=== PATIENT | female | born 1945 | race Caucasian/White ===

== ENCOUNTER 2021-03-25 12:57 | Inpatient (IN) | payer MEDICARE ==
[2021-03-25] MEDS ORDERED: Ipratropium Bromide 0.06% Nasal Inhaler 15ml EA NARE PRN (18:15)
[2021-03-25 20:10] LABS: Vancomycin, Trough 13.6 ug/mL
[2021-03-25] MEDS ORDERED: MELATONIN PO SCH (21:00)
[2021-03-25] MEDS ORDERED: PYRIDOXINE PO SCH (21:00)
[2021-03-25] MEDS ORDERED: Melatonin 3 MG TAB PO SCH (21:00)
[2021-03-25] MEDS ORDERED: Sodium Chloride 0.9% 20 ML ONE (21:16)
[2021-03-25] MEDS: Vancomycin HCl 1 GM in Sodium Chloride 0.9% 250 ML 250 ML IVPB SCH (21:34)
[2021-03-25] MEDS: Apixaban 5 MG TAB PO SCH (21:45)
[2021-03-25] MEDS: Escitalopram Oxalate 10 mg Tablet PO SCH (21:45)
[2021-03-25] MEDS: Magnesium Oxide 400 MG TAB PO SCH (21:51)
[2021-03-25] MEDS: AZELASTINE 0.1% FS SCH (21:53)
[2021-03-25] MEDS: Rifampin 300 MG CAP PO SCH (22:49)
[2021-03-26] MEDS: Levothyroxine Sodium 88 MCG TAB PO SCH (05:40)
[2021-03-26 06:27] LABS: #Basophils 0.1 thou/uL (0.0-0.2); #Eosinphils 0.1 thou/uL (0.0-0.7); #Lymphocytes 1.1 thou/uL (1.20-3.40); #Monocytes 0.7 thou/uL (0.11-0.59); #Neutrophils 3.4 thou/uL (1.40-6.50); %Basophils 1.3 % (0.0-1.0); %Eosinophils 2.5 % (0.0-10.0); %Lymphocytes 20.9 % (21.0-51.0); %Monocytes 12.3 % (0.0-10.0); Hemoglobin 9.6 g/dL (12.0-16.0); Mean Corpuscular HGB CONC 31.5 g/dL (32.0-36.0); Mean Corpuscular Hemoglobin 29.5 pg (27.0-31.0); Mean Corpuscular Volume 93.7 fL (78.0-98.0); Mean Platelet Volume 6.6 fL (7.4-10.4); Platelet Count 270 thou/uL (130-400); RBC Distribution Width 11.8 % (11.5-14.5); Red Blood Cell (RBC) Count 3.26 mill/uL (4.20-5.40); White Blood Cell (WBC) Count 5.4 thou/uL (4.8-10.8)
[2021-03-26 06:40] LABS: ALT (SGPT) 16 U/L (8-55); AST (SGOT) 19 U/L (5-34); Albumin 3.1 g/dL (3.4-4.8); Alkaline Phosphatase 74 U/L (40-110); Anion Gap 12 mmol/L (10-20); BUN (Urea Nitrogen) 36 mg/dL (9.8-20.1); Bilirubin, Total 0.8 mg/dL (0.2-1.2); Calc. Creatinine Clearance 43 mL/min (70-130); Calcium 9.6 mg/dL (7.8-10.44); Carbon Dioxide 27 mmol/L (23-31); Chloride 101 mmol/L (98-107); Globulin 2.9 g/dL (2.4-3.5); Glucose 97 mg/dL (83-110); Potassium 3.3 mmol/L (3.5-5.1); Sodium 137 mmol/L (136-145)
[2021-03-26] MEDS: Liothyronine Sodium 5 MCG TAB PO SCH (08:43)
[2021-03-26] MEDS: Cyanocobalamin (Vitamin B-12) 1,000 MCG TAB PO SCH (08:44)
[2021-03-26] MEDS: Cholecalciferol 1,000 UNITS (25 MCG) TAB PO SCH (08:44)
[2021-03-26] MEDS: Folic Acid 1 MG TAB PO SCH (08:44)
[2021-03-26] MEDS: Aspirin 81 mg Enteric Coated Tablet PO SCH (08:45)
[2021-03-26] MEDS: Multivitamin W/ Minerals 1 TAB PO SCH (08:45)
[2021-03-26] MEDS: Apixaban 5 MG TAB PO SCH ×2 (08:45→20:55)
[2021-03-26] MEDS: Hydrochlorothiazide 25 MG TAB PO SCH (08:45)
[2021-03-26] MEDS: Lisinopril 20 MG TAB PO SCH (08:46)
[2021-03-26] MEDS: pyridOXINE 50 MG (B6) TAB PO SCH (08:46)
[2021-03-26] MEDS: Atenolol 25 MG TAB PO SCH (08:47)
[2021-03-26] MEDS: Fish Oil 1,000 MG CAP PO SCH (08:47)
[2021-03-26] MEDS: Fluticasone Propionate Nasal Spray 16 gm Bottle NASAL SCH (08:49)
[2021-03-26] MEDS: [UNRECOGNIZED DRUG - OTHER] PO SCH (08:51)
[2021-03-26] MEDS: UBIDECARENONE 30 MG PO SCH (08:51)
[2021-03-26] MEDS: AZELASTINE 0.1% FS SCH ×2 (08:52→20:55)
[2021-03-26] MEDS: Rifampin 300 MG CAP PO SCH ×2 (08:55→20:54)
[2021-03-26] MEDS ORDERED: Potassium Chloride 20 MEQ TAB PO SCH (13:45)
[2021-03-26] MEDS: Vancomycin HCl 1 GM in Sodium Chloride 0.9% 250 ML 250 ML IVPB SCH (20:53)
[2021-03-26] MEDS: Escitalopram Oxalate 10 mg Tablet PO SCH (20:54)
[2021-03-26] MEDS: Magnesium Oxide 400 MG TAB PO SCH (20:55)
[2021-03-26] MEDS ORDERED: Melatonin 3 MG TAB PO SCH (21:00)
[2021-03-27] MEDS: Levothyroxine Sodium 88 MCG TAB PO SCH (06:31)
[2021-03-27] MEDS: Aspirin 81 mg Enteric Coated Tablet PO SCH (08:16)
[2021-03-27] MEDS: Fluticasone Propionate Nasal Spray 16 gm Bottle NASAL SCH (08:16)
[2021-03-27] MEDS: Cholecalciferol 1,000 UNITS (25 MCG) TAB PO SCH (08:17)
[2021-03-27] MEDS: Cyanocobalamin (Vitamin B-12) 1,000 MCG TAB PO SCH (08:17)
[2021-03-27] MEDS: Folic Acid 1 MG TAB PO SCH (08:17)
[2021-03-27] MEDS: Fish Oil 1,000 MG CAP PO SCH (08:18)
[2021-03-27] MEDS: Liothyronine Sodium 5 MCG TAB PO SCH (08:18)
[2021-03-27] MEDS: Apixaban 5 MG TAB PO SCH ×2 (08:19→20:46)
[2021-03-27] MEDS: Atenolol 25 MG TAB PO SCH (08:20)
[2021-03-27] MEDS: Hydrochlorothiazide 25 MG TAB PO SCH (08:21)
[2021-03-27] MEDS: Lisinopril 20 MG TAB PO SCH (08:22)
[2021-03-27] MEDS: pyridOXINE 50 MG (B6) TAB PO SCH (08:23)
[2021-03-27] MEDS: Multivitamin W/ Minerals 1 TAB PO SCH (08:23)
[2021-03-27] MEDS: AZELASTINE 0.1% FS SCH (08:24)
[2021-03-27] MEDS: UBIDECARENONE 30 MG PO SCH (08:25)
[2021-03-27] MEDS: [UNRECOGNIZED DRUG - OTHER] PO SCH (08:25)
[2021-03-27] MEDS: [UNRECOGNIZED DRUG - OTHER] PO SCH (08:26)
[2021-03-27] MEDS: [UNRECOGNIZED DRUG - OTHER] PO SCH (08:27)
[2021-03-27] MEDS: CHLORELLA PO SCH (08:27)
[2021-03-27 08:31] LABS: SARS-CoV-2 PCR by NAA Not Detected (NotDetected)
[2021-03-27] MEDS: Rifampin 300 MG CAP PO SCH ×2 (09:24→20:46)
[2021-03-27 17:41] LABS: Vancomycin, Trough 15.1 ug/mL
[2021-03-27] MEDS: Vancomycin HCl 1 GM in Sodium Chloride 0.9% 250 ML 250 ML IVPB SCH (20:45)
[2021-03-27] MEDS: Magnesium Oxide 400 MG TAB PO SCH (20:46)
[2021-03-27] MEDS: Melatonin 3 MG TAB PO SCH (20:46)
[2021-03-27] MEDS: Escitalopram Oxalate 10 mg Tablet PO SCH (20:47)
[2021-03-28] MEDS: Levothyroxine Sodium 88 MCG TAB PO SCH (05:49)
[2021-03-28 05:52] LABS: Anion Gap 9 mmol/L (10-20); BUN (Urea Nitrogen) 25 mg/dL (9.8-20.1); Calc. Creatinine Clearance 52 mL/min (70-130); Calcium 8.7 mg/dL (7.8-10.44); Carbon Dioxide 32 mmol/L (23-31); Chloride 99 mmol/L (98-107); Glucose 93 mg/dL (83-110); Potassium 3.3 mmol/L (3.5-5.1); Sodium 137 mmol/L (136-145)
[2021-03-28] MEDS: Aspirin 81 mg Enteric Coated Tablet PO SCH (08:30)
[2021-03-28] MEDS: Apixaban 5 MG TAB PO SCH ×2 (08:30→20:24)
[2021-03-28] MEDS: Cholecalciferol 1,000 UNITS (25 MCG) TAB PO SCH (08:31)
[2021-03-28] MEDS: Atenolol 25 MG TAB PO SCH (08:31)
[2021-03-28] MEDS: Fluticasone Propionate Nasal Spray 16 gm Bottle NASAL SCH (08:32)
[2021-03-28] MEDS: Cyanocobalamin (Vitamin B-12) 1,000 MCG TAB PO SCH (08:32)
[2021-03-28] MEDS: Fish Oil 1,000 MG CAP PO SCH (08:32)
[2021-03-28] MEDS: Hydrochlorothiazide 25 MG TAB PO SCH (08:34)
[2021-03-28] MEDS: Folic Acid 1 MG TAB PO SCH (08:34)
[2021-03-28] MEDS: Liothyronine Sodium 5 MCG TAB PO SCH (08:35)
[2021-03-28] MEDS: Lisinopril 20 MG TAB PO SCH (08:35)
[2021-03-28] MEDS: Multivitamin W/ Minerals 1 TAB PO SCH (08:36)
[2021-03-28] MEDS: UBIDECARENONE 30 MG PO SCH (08:36)
[2021-03-28] MEDS: [UNRECOGNIZED DRUG - OTHER] PO SCH (08:36)
[2021-03-28] MEDS: [UNRECOGNIZED DRUG - OTHER] PO SCH (08:37)
[2021-03-28] MEDS: CHLORELLA PO SCH (08:37)
[2021-03-28] MEDS: pyridOXINE 50 MG (B6) TAB PO SCH (08:38)
[2021-03-28] MEDS: [UNRECOGNIZED DRUG - OTHER] PO SCH (08:38)
[2021-03-28] MEDS: Acetaminophen 325 MG TAB PO PRN (09:44)
[2021-03-28] MEDS: Rifampin 300 MG CAP PO SCH ×2 (09:44→20:24)
[2021-03-28] MEDS ORDERED: Potassium Chloride 20 MEQ TAB PO SCH (12:45)
[2021-03-28] MEDS: Vancomycin HCl 1 GM in Sodium Chloride 0.9% 250 ML 250 ML IVPB SCH (20:21)
[2021-03-28] MEDS: Melatonin 3 MG TAB PO SCH (20:24)
[2021-03-28] MEDS: Magnesium Oxide 400 MG TAB PO SCH (20:24)
[2021-03-28] MEDS: Escitalopram Oxalate 10 mg Tablet PO SCH (20:25)
[2021-03-29] MEDS: Levothyroxine Sodium 88 MCG TAB PO SCH (05:10)
[2021-03-29 05:50] LABS: Potassium 3.5 mmol/L (3.5-5.1)
[2021-03-29] MEDS: Fluticasone Propionate Nasal Spray 16 gm Bottle NASAL SCH (08:26)
[2021-03-29] MEDS: Aspirin 81 mg Enteric Coated Tablet PO SCH (08:27)
[2021-03-29] MEDS: Apixaban 5 MG TAB PO SCH ×2 (08:27→20:13)
[2021-03-29] MEDS: Cholecalciferol 1,000 UNITS (25 MCG) TAB PO SCH (08:28)
[2021-03-29] MEDS: Atenolol 25 MG TAB PO SCH (08:28)
[2021-03-29] MEDS: Cyanocobalamin (Vitamin B-12) 1,000 MCG TAB PO SCH (08:29)
[2021-03-29] MEDS: Fish Oil 1,000 MG CAP PO SCH (08:29)
[2021-03-29] MEDS: Folic Acid 1 MG TAB PO SCH (08:29)
[2021-03-29] MEDS: Hydrochlorothiazide 25 MG TAB PO SCH (08:30)
[2021-03-29] MEDS: Liothyronine Sodium 5 MCG TAB PO SCH (08:30)
[2021-03-29] MEDS: [UNRECOGNIZED DRUG - OTHER] PO SCH (08:31)
[2021-03-29] MEDS: Multivitamin W/ Minerals 1 TAB PO SCH (08:31)
[2021-03-29] MEDS: Lisinopril 20 MG TAB PO SCH (08:31)
[2021-03-29] MEDS: UBIDECARENONE 30 MG PO SCH (08:32)
[2021-03-29] MEDS: [UNRECOGNIZED DRUG - OTHER] PO SCH (08:32)
[2021-03-29] MEDS: [UNRECOGNIZED DRUG - OTHER] PO SCH (08:33)
[2021-03-29] MEDS: CHLORELLA PO SCH (08:33)
[2021-03-29] MEDS: pyridOXINE 50 MG (B6) TAB PO SCH (08:33)
[2021-03-29] MEDS ORDERED: Potassium Chloride 20 MEQ TAB PO SCH ×2 (10:00→10:15)
[2021-03-29] MEDS: Rifampin 300 MG CAP PO SCH ×2 (10:27→21:10)
[2021-03-29 15:06] LABS: Hemoglobin A1c 5.2 % (4.0-6.0)
[2021-03-29] MEDS ORDERED: Sodium Chloride 0.9% 250 ML 0 ML ONE (19:48)
[2021-03-29] MEDS ORDERED: Sodium Chloride 0.9% 250 ML 250 ML ONE (19:53)
[2021-03-29] MEDS: Magnesium Oxide 400 MG TAB PO SCH (20:13)
[2021-03-29] MEDS: Melatonin 3 MG TAB PO SCH (20:13)
[2021-03-29] MEDS: Escitalopram Oxalate 10 mg Tablet PO SCH (20:14)
[2021-03-29] MEDS: Vancomycin HCl 1 GM in Sodium Chloride 0.9% 250 ML 250 ML IVPB SCH (20:14)
[2021-03-30] MEDS: Levothyroxine Sodium 88 MCG TAB PO SCH (05:35)
[2021-03-30] MEDS: Fluticasone Propionate Nasal Spray 16 gm Bottle NASAL SCH (08:34)
[2021-03-30] MEDS: Cholecalciferol 1,000 UNITS (25 MCG) TAB PO SCH (08:34)
[2021-03-30] MEDS: Lisinopril 20 MG TAB PO SCH (08:34)
[2021-03-30] MEDS: Folic Acid 1 MG TAB PO SCH (08:35)
[2021-03-30] MEDS: pyridOXINE 50 MG (B6) TAB PO SCH (08:36)
[2021-03-30] MEDS: Acetaminophen 325 MG TAB PO PRN ×2 (08:37→15:36)
[2021-03-30] MEDS: Hydrochlorothiazide 25 MG TAB PO SCH (08:37)
[2021-03-30] MEDS: Fish Oil 1,000 MG CAP PO SCH (08:39)
[2021-03-30] MEDS: Cyanocobalamin (Vitamin B-12) 1,000 MCG TAB PO SCH (08:39)
[2021-03-30] MEDS: Apixaban 5 MG TAB PO SCH ×2 (08:39→20:11)
[2021-03-30] MEDS: Atenolol 25 MG TAB PO SCH (08:39)
[2021-03-30] MEDS: Multivitamin W/ Minerals 1 TAB PO SCH (08:39)
[2021-03-30] MEDS: Potassium Chloride 20 MEQ TAB PO SCH (08:39)
[2021-03-30] MEDS: UBIDECARENONE 30 MG PO SCH (08:40)
[2021-03-30] MEDS: [UNRECOGNIZED DRUG - OTHER] PO SCH (08:40)
[2021-03-30] MEDS: Liothyronine Sodium 5 MCG TAB PO SCH (08:40)
[2021-03-30] MEDS: Aspirin 81 mg Enteric Coated Tablet PO SCH (08:40)
[2021-03-30] MEDS: [UNRECOGNIZED DRUG - OTHER] PO SCH (08:42)
[2021-03-30] MEDS: CHLORELLA PO SCH (08:42)
[2021-03-30] MEDS: [UNRECOGNIZED DRUG - OTHER] PO SCH (08:43)
[2021-03-30] MEDS: Rifampin 300 MG CAP PO SCH ×2 (11:17→20:21)
[2021-03-30 19:33] LABS: Vancomycin, Trough 14.2 ug/mL
[2021-03-30] MEDS: Magnesium Oxide 400 MG TAB PO SCH (20:10)
[2021-03-30] MEDS: Escitalopram Oxalate 10 mg Tablet PO SCH (20:10)
[2021-03-30] MEDS: Melatonin 3 MG TAB PO SCH (20:11)
[2021-03-30] MEDS: Vancomycin HCl 1 GM in Sodium Chloride 0.9% 250 ML 250 ML IVPB SCH (20:21)
[2021-03-31] MEDS: Levothyroxine Sodium 88 MCG TAB PO SCH (05:23)
[2021-03-31] MEDS: Potassium Chloride 20 MEQ TAB PO SCH (09:07)
[2021-03-31] MEDS: Fish Oil 1,000 MG CAP PO SCH (09:07)
[2021-03-31] MEDS: Folic Acid 1 MG TAB PO SCH (09:07)
[2021-03-31] MEDS: Multivitamin W/ Minerals 1 TAB PO SCH (09:08)
[2021-03-31] MEDS: pyridOXINE 50 MG (B6) TAB PO SCH (09:08)
[2021-03-31] MEDS: Lisinopril 20 MG TAB PO SCH (09:08)
[2021-03-31] MEDS: Cyanocobalamin (Vitamin B-12) 1,000 MCG TAB PO SCH (09:08)
[2021-03-31] MEDS: Cholecalciferol 1,000 UNITS (25 MCG) TAB PO SCH (09:09)
[2021-03-31] MEDS: Apixaban 5 MG TAB PO SCH ×2 (09:09→20:41)
[2021-03-31] MEDS: Aspirin 81 mg Enteric Coated Tablet PO SCH (09:09)
[2021-03-31] MEDS: Fluticasone Propionate Nasal Spray 16 gm Bottle NASAL SCH (09:09)
[2021-03-31] MEDS: Liothyronine Sodium 5 MCG TAB PO SCH (09:09)
[2021-03-31] MEDS: [UNRECOGNIZED DRUG - OTHER] PO SCH (09:10)
[2021-03-31] MEDS: Atenolol 25 MG TAB PO SCH (09:10)
[2021-03-31] MEDS: UBIDECARENONE 30 MG PO SCH (09:11)
[2021-03-31] MEDS: [UNRECOGNIZED DRUG - OTHER] PO SCH (09:11)
[2021-03-31] MEDS: CHLORELLA PO SCH (09:12)
[2021-03-31] MEDS: [UNRECOGNIZED DRUG - OTHER] PO SCH (09:12)
[2021-03-31] MEDS: Hydrochlorothiazide 25 MG TAB PO SCH (10:15)
[2021-03-31] MEDS: Rifampin 300 MG CAP PO SCH ×2 (11:11→20:43)
[2021-03-31] MEDS: Vancomycin HCl 500 MG in Sodium Chloride 0.9% 100 ML IVPB SCH (16:29)
[2021-03-31] MEDS: Vancomycin HCl 750 MG in Sodium Chloride 0.9% 250 ML 250 ML IVPB SCH (16:30)
[2021-03-31] MEDS: Melatonin 3 MG TAB PO SCH (20:41)
[2021-03-31] MEDS: Magnesium Oxide 400 MG TAB PO SCH (20:41)
[2021-03-31] MEDS: Escitalopram Oxalate 10 mg Tablet PO SCH (20:41)
[2021-04-01] MEDS: Levothyroxine Sodium 88 MCG TAB PO SCH (05:35)
[2021-04-01] MEDS: Acetaminophen 325 MG TAB PO PRN (06:57)
[2021-04-01] MEDS: Fluticasone Propionate Nasal Spray 16 gm Bottle NASAL SCH (09:02)
[2021-04-01] MEDS: Aspirin 81 mg Enteric Coated Tablet PO SCH (09:05)
[2021-04-01] MEDS: Potassium Chloride 20 MEQ TAB PO SCH (09:05)
[2021-04-01] MEDS: Apixaban 5 MG TAB PO SCH ×2 (09:05→20:58)
[2021-04-01] MEDS: Atenolol 25 MG TAB PO SCH (09:06)
[2021-04-01] MEDS: Cholecalciferol 1,000 UNITS (25 MCG) TAB PO SCH (09:07)
[2021-04-01] MEDS: Liothyronine Sodium 5 MCG TAB PO SCH (09:08)
[2021-04-01] MEDS: Fish Oil 1,000 MG CAP PO SCH (09:08)
[2021-04-01] MEDS: Cyanocobalamin (Vitamin B-12) 1,000 MCG TAB PO SCH (09:08)
[2021-04-01] MEDS: Folic Acid 1 MG TAB PO SCH (09:08)
[2021-04-01] MEDS: Multivitamin W/ Minerals 1 TAB PO SCH (09:09)
[2021-04-01] MEDS: UBIDECARENONE 30 MG PO SCH (09:10)
[2021-04-01] MEDS: [UNRECOGNIZED DRUG - OTHER] PO SCH (09:10)
[2021-04-01] MEDS: [UNRECOGNIZED DRUG - OTHER] PO SCH (09:10)
[2021-04-01] MEDS: [UNRECOGNIZED DRUG - OTHER] PO SCH (09:11)
[2021-04-01] MEDS: CHLORELLA PO SCH (09:11)
[2021-04-01] MEDS: pyridOXINE 50 MG (B6) TAB PO SCH (09:11)
[2021-04-01] MEDS: Rifampin 300 MG CAP PO SCH ×2 (09:12→20:57)
[2021-04-01 09:50] LABS: #Eosinphils 0.2 thou/uL (0.0-0.7); #Lymphocytes 0.9 thou/uL (1.20-3.40); #Monocytes 0.4 thou/uL (0.11-0.59); #Neutrophils 2.1 thou/uL (1.40-6.50); %Basophils 1.1 % (0.0-1.0); %Eosinophils 4.9 % (0.0-10.0); %Lymphocytes 24.9 % (21.0-51.0); %Monocytes 10.9 % (0.0-10.0); %Neutrophils 58.2 % (42.0-75.0); Hemoglobin 10.3 g/dL (12.0-16.0); Mean Corpuscular HGB CONC 31.9 g/dL (32.0-36.0); Mean Corpuscular Hemoglobin 29.7 pg (27.0-31.0); Mean Corpuscular Volume 93.3 fL (78.0-98.0); Mean Platelet Volume 6.3 fL (7.4-10.4); Platelet Count 302 thou/uL (130-400); RBC Distribution Width 12.9 % (11.5-14.5); Red Blood Cell (RBC) Count 3.45 mill/uL (4.20-5.40); White Blood Cell (WBC) Count 3.5 thou/uL (4.8-10.8)
[2021-04-01 10:05] LABS: ALT (SGPT) 14 U/L (8-55); AST (SGOT) 26 U/L (5-34); Albumin 3.1 g/dL (3.4-4.8); Alkaline Phosphatase 83 U/L (40-110); Anion Gap 14 mmol/L (10-20); BUN (Urea Nitrogen) 15 mg/dL (9.8-20.1); Bilirubin, Total 0.2 mg/dL (0.2-1.2); CRP (Inflammatory) 0.78 mg/dL (= or < 0.5); Calc. Creatinine Clearance 49 mL/min (70-130); Calcium 8.8 mg/dL (7.8-10.44); Carbon Dioxide 23 mmol/L (23-31); Chloride 100 mmol/L (98-107); Globulin 3.2 g/dL (2.4-3.5); Glucose 112 mg/dL (83-110); Potassium 3.9 mmol/L (3.5-5.1); Protein, Total 6.3 g/dL (5.8-8.1); Sodium 133 mmol/L (136-145)
[2021-04-01 16:40] LABS: Vancomycin, Trough 15.5 ug/mL
[2021-04-01] MEDS: Vancomycin HCl 750 MG in Sodium Chloride 0.9% 250 ML 250 ML IVPB SCH (17:41)
[2021-04-01] MEDS: Vancomycin HCl 500 MG in Sodium Chloride 0.9% 100 ML IVPB SCH (17:42)
[2021-04-01] MEDS: Melatonin 3 MG TAB PO SCH (20:57)
[2021-04-01] MEDS: Escitalopram Oxalate 10 mg Tablet PO SCH (20:57)
[2021-04-01] MEDS: Magnesium Oxide 400 MG TAB PO SCH (20:58)
[2021-04-01] MEDS: Lisinopril 20 MG TAB PO SCH (20:58)
[2021-04-02] MEDS: Levothyroxine Sodium 88 MCG TAB PO SCH (05:58)
[2021-04-02] MEDS: Potassium Chloride 20 MEQ TAB PO SCH (08:39)
[2021-04-02] MEDS: Apixaban 5 MG TAB PO SCH ×2 (08:39→21:26)
[2021-04-02] MEDS: Aspirin 81 mg Enteric Coated Tablet PO SCH (08:39)
[2021-04-02] MEDS: Cyanocobalamin (Vitamin B-12) 1,000 MCG TAB PO SCH (08:40)
[2021-04-02] MEDS: Atenolol 25 MG TAB PO SCH (08:40)
[2021-04-02] MEDS: Cholecalciferol 1,000 UNITS (25 MCG) TAB PO SCH (08:40)
[2021-04-02] MEDS: Fluticasone Propionate Nasal Spray 16 gm Bottle NASAL SCH (08:41)
[2021-04-02] MEDS: Folic Acid 1 MG TAB PO SCH (08:41)
[2021-04-02] MEDS: Fish Oil 1,000 MG CAP PO SCH (08:41)
[2021-04-02] MEDS: pyridOXINE 50 MG (B6) TAB PO SCH (08:42)
[2021-04-02] MEDS: Liothyronine Sodium 5 MCG TAB PO SCH (08:42)
[2021-04-02] MEDS: Acetaminophen 325 MG TAB PO PRN (08:43)
[2021-04-02] MEDS: Multivitamin W/ Minerals 1 TAB PO SCH (08:43)
[2021-04-02] MEDS: [UNRECOGNIZED DRUG - OTHER] PO SCH (08:44)
[2021-04-02] MEDS: UBIDECARENONE 30 MG PO SCH (08:44)
[2021-04-02] MEDS: CHLORELLA PO SCH (08:45)
[2021-04-02] MEDS: [UNRECOGNIZED DRUG - OTHER] PO SCH (08:45)
[2021-04-02] MEDS: [UNRECOGNIZED DRUG - OTHER] PO SCH (08:45)
[2021-04-02] MEDS: Rifampin 300 MG CAP PO SCH ×2 (09:46→21:26)
[2021-04-02] MEDS ORDERED: Sodium Chloride 0.9% 10 ML ONE (16:47)
[2021-04-02] MEDS: Vancomycin HCl 750 MG in Sodium Chloride 0.9% 250 ML 250 ML IVPB SCH (17:11)
[2021-04-02] MEDS: Vancomycin HCl 500 MG in Sodium Chloride 0.9% 100 ML IVPB SCH (17:12)
[2021-04-02] MEDS: Magnesium Oxide 400 MG TAB PO SCH (21:25)
[2021-04-02] MEDS: Escitalopram Oxalate 10 mg Tablet PO SCH (21:26)
[2021-04-02] MEDS: Melatonin 3 MG TAB PO SCH (21:26)
[2021-04-02] MEDS: Lisinopril 20 MG TAB PO SCH (21:27)
[2021-04-03] MEDS: Levothyroxine Sodium 88 MCG TAB PO SCH (05:46)
[2021-04-03] MEDS: Liothyronine Sodium 5 MCG TAB PO SCH (08:46)
[2021-04-03] MEDS: Folic Acid 1 MG TAB PO SCH (08:46)
[2021-04-03] MEDS: Potassium Chloride 20 MEQ TAB PO SCH (08:47)
[2021-04-03] MEDS: Atenolol 25 MG TAB PO SCH (08:47)
[2021-04-03] MEDS: pyridOXINE 50 MG (B6) TAB PO SCH (08:49)
[2021-04-03] MEDS: Cyanocobalamin (Vitamin B-12) 1,000 MCG TAB PO SCH (08:49)
[2021-04-03] MEDS: Fish Oil 1,000 MG CAP PO SCH (08:49)
[2021-04-03] MEDS: Multivitamin W/ Minerals 1 TAB PO SCH (08:50)
[2021-04-03] MEDS: Apixaban 5 MG TAB PO SCH ×2 (08:50→21:41)
[2021-04-03] MEDS: Rifampin 300 MG CAP PO SCH ×2 (08:50→21:40)
[2021-04-03] MEDS: Fluticasone Propionate Nasal Spray 16 gm Bottle NASAL SCH (08:50)
[2021-04-03] MEDS: Aspirin 81 mg Enteric Coated Tablet PO SCH (08:50)
[2021-04-03] MEDS: Cholecalciferol 1,000 UNITS (25 MCG) TAB PO SCH (08:50)
[2021-04-03] MEDS: [UNRECOGNIZED DRUG - OTHER] PO SCH (08:51)
[2021-04-03] MEDS: UBIDECARENONE 30 MG PO SCH (08:52)
[2021-04-03] MEDS: [UNRECOGNIZED DRUG - OTHER] PO SCH (08:52)
[2021-04-03] MEDS: CHLORELLA PO SCH (08:53)
[2021-04-03] MEDS: [UNRECOGNIZED DRUG - OTHER] PO SCH (08:53)
[2021-04-03] MEDS: Acetaminophen 325 MG TAB PO PRN (15:38)
[2021-04-03] MEDS: Vancomycin HCl 750 MG in Sodium Chloride 0.9% 250 ML 250 ML IVPB SCH (16:49)
[2021-04-03] MEDS: Vancomycin HCl 500 MG in Sodium Chloride 0.9% 100 ML IVPB SCH (16:50)
[2021-04-03] MEDS: Magnesium Oxide 400 MG TAB PO SCH (21:37)
[2021-04-03] MEDS: Melatonin 3 MG TAB PO SCH (21:38)
[2021-04-03] MEDS: Escitalopram Oxalate 10 mg Tablet PO SCH (21:38)
[2021-04-03] MEDS: Lisinopril 20 MG TAB PO SCH (21:39)
[2021-04-04 01:38] LABS: SARS-CoV-2 PCR by NAA Not Detected (NotDetected)
[2021-04-04] MEDS: Levothyroxine Sodium 88 MCG TAB PO SCH (05:34)
[2021-04-04] MEDS: Rifampin 300 MG CAP PO SCH ×2 (08:55→20:42)
[2021-04-04] MEDS: Folic Acid 1 MG TAB PO SCH (08:55)
[2021-04-04] MEDS: Multivitamin W/ Minerals 1 TAB PO SCH (08:56)
[2021-04-04] MEDS: Fish Oil 1,000 MG CAP PO SCH (08:56)
[2021-04-04] MEDS: Potassium Chloride 20 MEQ TAB PO SCH (08:56)
[2021-04-04] MEDS: Cholecalciferol 1,000 UNITS (25 MCG) TAB PO SCH (08:56)
[2021-04-04] MEDS: pyridOXINE 50 MG (B6) TAB PO SCH (08:56)
[2021-04-04] MEDS: Liothyronine Sodium 5 MCG TAB PO SCH (08:56)
[2021-04-04] MEDS: Apixaban 5 MG TAB PO SCH ×2 (08:56→20:38)
[2021-04-04] MEDS: Aspirin 81 mg Enteric Coated Tablet PO SCH (08:56)
[2021-04-04] MEDS: Cyanocobalamin (Vitamin B-12) 1,000 MCG TAB PO SCH (08:56)
[2021-04-04] MEDS: Atenolol 25 MG TAB PO SCH (08:57)
[2021-04-04] MEDS: Fluticasone Propionate Nasal Spray 16 gm Bottle NASAL SCH (08:58)
[2021-04-04] MEDS: [UNRECOGNIZED DRUG - OTHER] PO SCH (08:58)
[2021-04-04] MEDS: UBIDECARENONE 30 MG PO SCH (08:58)
[2021-04-04] MEDS: [UNRECOGNIZED DRUG - OTHER] PO SCH (08:58)
[2021-04-04] MEDS: [UNRECOGNIZED DRUG - OTHER] PO SCH (08:59)
[2021-04-04] MEDS: CHLORELLA PO SCH (08:59)
[2021-04-04 16:26] LABS: Vancomycin, Trough 17.3 ug/mL
[2021-04-04] MEDS: Vancomycin HCl 750 MG in Sodium Chloride 0.9% 250 ML 250 ML IVPB SCH (16:58)
[2021-04-04] MEDS: Vancomycin HCl 500 MG in Sodium Chloride 0.9% 100 ML IVPB SCH (16:59)
[2021-04-04] MEDS ORDERED: Sodium Chloride 0.9% 10 ML ONE (19:18)
[2021-04-04] MEDS: Melatonin 3 MG TAB PO SCH (20:38)
[2021-04-04] MEDS: Lisinopril 20 MG TAB PO SCH (20:38)
[2021-04-04] MEDS: Magnesium Oxide 400 MG TAB PO SCH (20:39)
[2021-04-04] MEDS: Escitalopram Oxalate 10 mg Tablet PO SCH (20:40)
[2021-04-04] MEDS: Acetaminophen 325 MG TAB PO PRN (20:41)
[2021-04-05] MEDS: Levothyroxine Sodium 88 MCG TAB PO SCH (06:04)
[2021-04-05] MEDS: Fluticasone Propionate Nasal Spray 16 gm Bottle NASAL SCH (08:17)
[2021-04-05] MEDS: Liothyronine Sodium 5 MCG TAB PO SCH (08:17)
[2021-04-05] MEDS: Fish Oil 1,000 MG CAP PO SCH (08:18)
[2021-04-05] MEDS: Cyanocobalamin (Vitamin B-12) 1,000 MCG TAB PO SCH (08:18)
[2021-04-05] MEDS: Folic Acid 1 MG TAB PO SCH (08:18)
[2021-04-05] MEDS: Multivitamin W/ Minerals 1 TAB PO SCH (08:18)
[2021-04-05] MEDS: Aspirin 81 mg Enteric Coated Tablet PO SCH (08:18)
[2021-04-05] MEDS: Cholecalciferol 1,000 UNITS (25 MCG) TAB PO SCH (08:20)
[2021-04-05] MEDS: Potassium Chloride 20 MEQ TAB PO SCH (08:20)
[2021-04-05] MEDS: Atenolol 25 MG TAB PO SCH (08:20)
[2021-04-05] MEDS: [UNRECOGNIZED DRUG - OTHER] PO SCH (08:22)
[2021-04-05] MEDS: Apixaban 5 MG TAB PO SCH ×2 (08:22→20:42)
[2021-04-05] MEDS: pyridOXINE 50 MG (B6) TAB PO SCH (08:22)
[2021-04-05] MEDS: [UNRECOGNIZED DRUG - OTHER] PO SCH (08:24)
[2021-04-05] MEDS: CHLORELLA PO SCH (08:24)
[2021-04-05] MEDS: [UNRECOGNIZED DRUG - OTHER] PO SCH (08:25)
[2021-04-05] MEDS: UBIDECARENONE 30 MG PO SCH (08:25)
[2021-04-05] MEDS: Vancomycin HCl 750 MG in Sodium Chloride 0.9% 250 ML 250 ML IVPB SCH (17:24)
[2021-04-05] MEDS: Vancomycin HCl 500 MG in Sodium Chloride 0.9% 100 ML IVPB SCH (17:24)
[2021-04-05] MEDS ORDERED: Acetaminophen 325 MG TAB ONE (20:36)
[2021-04-05] MEDS: Lisinopril 20 MG TAB PO SCH (20:41)
[2021-04-05] MEDS: Acetaminophen 325 MG TAB PO PRN (20:42)
[2021-04-05] MEDS: Melatonin 3 MG TAB PO SCH (20:42)
[2021-04-05] MEDS: Escitalopram Oxalate 10 mg Tablet PO SCH (20:42)
[2021-04-05] MEDS: Magnesium Oxide 400 MG TAB PO SCH (20:42)
[2021-04-06] MEDS: Levothyroxine Sodium 88 MCG TAB PO SCH (05:51)
[2021-04-06] MEDS: Fluticasone Propionate Nasal Spray 16 gm Bottle NASAL SCH (08:35)
[2021-04-06] MEDS: Potassium Chloride 20 MEQ TAB PO SCH (08:36)
[2021-04-06] MEDS: Apixaban 5 MG TAB PO SCH ×2 (08:37→20:41)
[2021-04-06] MEDS: Aspirin 81 mg Enteric Coated Tablet PO SCH (08:37)
[2021-04-06] MEDS: Atenolol 25 MG TAB PO SCH (08:37)
[2021-04-06] MEDS: Fish Oil 1,000 MG CAP PO SCH (08:38)
[2021-04-06] MEDS: Cholecalciferol 1,000 UNITS (25 MCG) TAB PO SCH (08:38)
[2021-04-06] MEDS: Cyanocobalamin (Vitamin B-12) 1,000 MCG TAB PO SCH (08:38)
[2021-04-06] MEDS: Liothyronine Sodium 5 MCG TAB PO SCH (08:39)
[2021-04-06] MEDS: Folic Acid 1 MG TAB PO SCH (08:39)
[2021-04-06] MEDS: [UNRECOGNIZED DRUG - OTHER] PO SCH (08:40)
[2021-04-06] MEDS: Multivitamin W/ Minerals 1 TAB PO SCH (08:40)
[2021-04-06] MEDS: [UNRECOGNIZED DRUG - OTHER] PO SCH (08:41)
[2021-04-06] MEDS: UBIDECARENONE 30 MG PO SCH (08:41)
[2021-04-06] MEDS: pyridOXINE 50 MG (B6) TAB PO SCH (08:42)
[2021-04-06] MEDS: CHLORELLA PO SCH (08:42)
[2021-04-06] MEDS: [UNRECOGNIZED DRUG - OTHER] PO SCH (08:42)
[2021-04-06] MEDS: Acetaminophen 325 MG TAB PO PRN (08:43)
[2021-04-06 16:27] LABS: Vancomycin, Trough 17.8 ug/mL
[2021-04-06] MEDS: Vancomycin HCl 500 MG in Sodium Chloride 0.9% 100 ML IVPB SCH (16:56)
[2021-04-06] MEDS: Vancomycin HCl 750 MG in Sodium Chloride 0.9% 250 ML 250 ML IVPB SCH (16:56)
[2021-04-06] MEDS: Escitalopram Oxalate 10 mg Tablet PO SCH (20:42)
[2021-04-06] MEDS: Lisinopril 20 MG TAB PO SCH (20:43)
[2021-04-06] MEDS: Magnesium Oxide 400 MG TAB PO SCH (20:44)
[2021-04-06] MEDS: Nystatin Cream 15 GM TUBE TOP SCH (20:45)
[2021-04-06] MEDS: Melatonin 3 MG TAB PO SCH (20:46)
[2021-04-06] MEDS ORDERED: Nystatin Ointment 15 GM TUBE TOP SCH (21:00)
[2021-04-07] MEDS: Levothyroxine Sodium 88 MCG TAB PO SCH (06:43)
[2021-04-07] MEDS: Apixaban 5 MG TAB PO SCH ×2 (09:17→20:00)
[2021-04-07] MEDS: Potassium Chloride 20 MEQ TAB PO SCH (09:17)
[2021-04-07] MEDS: Atenolol 25 MG TAB PO SCH (09:17)
[2021-04-07] MEDS: Aspirin 81 mg Enteric Coated Tablet PO SCH (09:17)
[2021-04-07] MEDS: Cholecalciferol 1,000 UNITS (25 MCG) TAB PO SCH (09:18)
[2021-04-07] MEDS: Fluticasone Propionate Nasal Spray 16 gm Bottle NASAL SCH (09:18)
[2021-04-07] MEDS: Hydrochlorothiazide 25 MG TAB PO SCH (09:19)
[2021-04-07] MEDS: Cyanocobalamin (Vitamin B-12) 1,000 MCG TAB PO SCH (09:19)
[2021-04-07] MEDS: Fish Oil 1,000 MG CAP PO SCH (09:19)
[2021-04-07] MEDS: Folic Acid 1 MG TAB PO SCH (09:19)
[2021-04-07] MEDS: Liothyronine Sodium 5 MCG TAB PO SCH (09:20)
[2021-04-07] MEDS: Multivitamin W/ Minerals 1 TAB PO SCH (09:21)
[2021-04-07] MEDS: [UNRECOGNIZED DRUG - OTHER] PO SCH (09:21)
[2021-04-07] MEDS: Nystatin Cream 15 GM TUBE TOP SCH ×2 (09:22→20:02)
[2021-04-07] MEDS: UBIDECARENONE 30 MG PO SCH (09:22)
[2021-04-07] MEDS: [UNRECOGNIZED DRUG - OTHER] PO SCH (09:22)
[2021-04-07] MEDS: CHLORELLA PO SCH (09:23)
[2021-04-07] MEDS: [UNRECOGNIZED DRUG - OTHER] PO SCH (09:23)
[2021-04-07] MEDS: pyridOXINE 50 MG (B6) TAB PO SCH (09:23)
[2021-04-07] MEDS: Amlodipine 5 MG TAB PO SCH (10:16)
[2021-04-07] MEDS ORDERED: Rifampin 300 MG CAP PO SCH (11:15)
[2021-04-07] MEDS: Vancomycin HCl 500 MG in Sodium Chloride 0.9% 100 ML IVPB SCH (17:10)
[2021-04-07] MEDS: Vancomycin HCl 750 MG in Sodium Chloride 0.9% 250 ML 250 ML IVPB SCH (17:10)
[2021-04-07] MEDS: Melatonin 3 MG TAB PO SCH (20:00)
[2021-04-07] MEDS: Lisinopril 20 MG TAB PO SCH (20:00)
[2021-04-07] MEDS: Escitalopram Oxalate 10 mg Tablet PO SCH (20:01)
[2021-04-07] MEDS: Magnesium Oxide 400 MG TAB PO SCH (20:02)
[2021-04-07] MEDS: Acetaminophen 325 MG TAB PO PRN (20:05)
[2021-04-07] MEDS: Rifampin 300 MG CAP PO SCH (21:07)
[2021-04-07] MEDS ORDERED: clonazePAM 0.5 MG TAB PO PRN (21:37)
[2021-04-08] MEDS: Levothyroxine Sodium 88 MCG TAB PO SCH (06:30)
[2021-04-08 06:37] LABS: #Eosinphils 0.2 thou/uL (0.0-0.7); #Monocytes 0.5 thou/uL (0.11-0.59); #Neutrophils 1.7 thou/uL (1.40-6.50); %Eosinophils 5.4 % (0.0-10.0); %Lymphocytes 28.9 % (21.0-51.0); %Monocytes 14.9 % (0.0-10.0); %Neutrophils 49.8 % (42.0-75.0); Hemoglobin 9.5 g/dL (12.0-16.0); Mean Corpuscular HGB CONC 31.5 g/dL (32.0-36.0); Mean Corpuscular Hemoglobin 29.8 pg (27.0-31.0); Mean Corpuscular Volume 94.7 fL (78.0-98.0); Mean Platelet Volume 6.4 fL (7.4-10.4); Platelet Count 238 thou/uL (130-400); RBC Distribution Width 13.8 % (11.5-14.5); Red Blood Cell (RBC) Count 3.19 mill/uL (4.20-5.40); White Blood Cell (WBC) Count 3.4 thou/uL (4.8-10.8)
[2021-04-08 06:51] LABS: ALT (SGPT) 14 U/L (8-55); AST (SGOT) 20 U/L (5-34); Albumin 3.1 g/dL (3.4-4.8); Alkaline Phosphatase 70 U/L (40-110); Anion Gap 11 mmol/L (10-20); BUN (Urea Nitrogen) 21 mg/dL (9.8-20.1); Bilirubin, Total 0.4 mg/dL (0.2-1.2); Calc. Creatinine Clearance 57 mL/min (70-130); Calcium 8.7 mg/dL (7.8-10.44); Carbon Dioxide 25 mmol/L (23-31); Chloride 104 mmol/L (98-107); Globulin 2.8 g/dL (2.4-3.5); Glucose 86 mg/dL (83-110); Potassium 3.7 mmol/L (3.5-5.1); Protein, Total 5.9 g/dL (5.8-8.1); Sodium 136 mmol/L (136-145)
[2021-04-08] MEDS: Potassium Chloride 20 MEQ TAB PO SCH (09:35)
[2021-04-08] MEDS: Multivitamin W/ Minerals 1 TAB PO SCH (09:36)
[2021-04-08] MEDS: Fish Oil 1,000 MG CAP PO SCH (09:36)
[2021-04-08] MEDS: Cyanocobalamin (Vitamin B-12) 1,000 MCG TAB PO SCH (09:37)
[2021-04-08] MEDS: Folic Acid 1 MG TAB PO SCH (09:37)
[2021-04-08] MEDS: Atenolol 25 MG TAB PO SCH (09:39)
[2021-04-08] MEDS: Apixaban 5 MG TAB PO SCH ×2 (09:41→20:57)
[2021-04-08] MEDS: Cholecalciferol 1,000 UNITS (25 MCG) TAB PO SCH (09:41)
[2021-04-08] MEDS: pyridOXINE 50 MG (B6) TAB PO SCH (09:41)
[2021-04-08] MEDS: Hydrochlorothiazide 25 MG TAB PO SCH (09:43)
[2021-04-08] MEDS: Fluticasone Propionate Nasal Spray 16 gm Bottle NASAL SCH (09:44)
[2021-04-08] MEDS: Aspirin 81 mg Enteric Coated Tablet PO SCH (09:44)
[2021-04-08] MEDS: Amlodipine 5 MG TAB PO SCH (09:44)
[2021-04-08] MEDS: [UNRECOGNIZED DRUG - OTHER] PO SCH (09:45)
[2021-04-08] MEDS: [UNRECOGNIZED DRUG - OTHER] PO SCH (09:45)
[2021-04-08] MEDS: UBIDECARENONE 30 MG PO SCH (09:45)
[2021-04-08] MEDS: [UNRECOGNIZED DRUG - OTHER] PO SCH (09:46)
[2021-04-08] MEDS: CHLORELLA PO SCH (09:46)
[2021-04-08] MEDS: Nystatin Cream 15 GM TUBE TOP SCH ×2 (09:47→21:00)
[2021-04-08] MEDS: Liothyronine Sodium 5 MCG TAB PO SCH (10:07)
[2021-04-08] MEDS: Rifampin 300 MG CAP PO SCH ×2 (10:13→21:00)
[2021-04-08] MEDS ORDERED: Sodium Chloride 0.9% 10 ML ONE (17:08)
[2021-04-08] MEDS: Vancomycin HCl 750 MG in Sodium Chloride 0.9% 250 ML 250 ML IVPB SCH (17:21)
[2021-04-08] MEDS: Vancomycin HCl 500 MG in Sodium Chloride 0.9% 100 ML IVPB SCH (17:22)
[2021-04-08] MEDS: Melatonin 3 MG TAB PO SCH (20:57)
[2021-04-08] MEDS: Magnesium Oxide 400 MG TAB PO SCH (20:57)
[2021-04-08] MEDS: Escitalopram Oxalate 10 mg Tablet PO SCH (20:58)
[2021-04-08] MEDS: Lisinopril 20 MG TAB PO SCH (20:59)
[2021-04-09] MEDS: Levothyroxine Sodium 88 MCG TAB PO SCH (05:43)
[2021-04-09] MEDS: Fluticasone Propionate Nasal Spray 16 gm Bottle NASAL SCH (09:12)
[2021-04-09] MEDS: Hydrochlorothiazide 25 MG TAB PO SCH (09:13)
[2021-04-09] MEDS: Potassium Chloride 20 MEQ TAB PO SCH (09:13)
[2021-04-09] MEDS: Multivitamin W/ Minerals 1 TAB PO SCH (09:14)
[2021-04-09] MEDS: Amlodipine 5 MG TAB PO SCH (09:15)
[2021-04-09] MEDS: Fish Oil 1,000 MG CAP PO SCH (09:15)
[2021-04-09] MEDS: Folic Acid 1 MG TAB PO SCH (09:16)
[2021-04-09] MEDS: pyridOXINE 50 MG (B6) TAB PO SCH (09:17)
[2021-04-09] MEDS: Atenolol 25 MG TAB PO SCH (09:17)
[2021-04-09] MEDS: Aspirin 81 mg Enteric Coated Tablet PO SCH (09:18)
[2021-04-09] MEDS: Cyanocobalamin (Vitamin B-12) 1,000 MCG TAB PO SCH (09:19)
[2021-04-09] MEDS: Apixaban 5 MG TAB PO SCH ×2 (09:19→21:04)
[2021-04-09] MEDS: Cholecalciferol 1,000 UNITS (25 MCG) TAB PO SCH (09:19)
[2021-04-09] MEDS: Liothyronine Sodium 5 MCG TAB PO SCH (09:20)
[2021-04-09] MEDS: [UNRECOGNIZED DRUG - OTHER] PO SCH (09:21)
[2021-04-09] MEDS: [UNRECOGNIZED DRUG - OTHER] PO SCH (09:21)
[2021-04-09] MEDS: UBIDECARENONE 30 MG PO SCH (09:21)
[2021-04-09] MEDS: Nystatin Cream 15 GM TUBE TOP SCH ×2 (09:21→21:04)
[2021-04-09] MEDS: [UNRECOGNIZED DRUG - OTHER] PO SCH (09:22)
[2021-04-09] MEDS: CHLORELLA PO SCH (09:22)
[2021-04-09] MEDS: Rifampin 300 MG CAP PO SCH ×2 (11:25→21:03)
[2021-04-09] MEDS: Vancomycin HCl 750 MG in Sodium Chloride 0.9% 250 ML 250 ML IVPB SCH (16:51)
[2021-04-09] MEDS ORDERED: Sodium Chloride 0.9% 10 ML ONE (16:54)
[2021-04-09] MEDS: Vancomycin HCl 500 MG in Sodium Chloride 0.9% 100 ML IVPB SCH (16:56)
[2021-04-09] MEDS: Lisinopril 20 MG TAB PO SCH (21:03)
[2021-04-09] MEDS: Melatonin 3 MG TAB PO SCH (21:04)
[2021-04-09] MEDS: Escitalopram Oxalate 10 mg Tablet PO SCH (21:04)
[2021-04-09] MEDS: Magnesium Oxide 400 MG TAB PO SCH (21:04)
[2021-04-10] MEDS: Levothyroxine Sodium 88 MCG TAB PO SCH (05:43)
[2021-04-10] MEDS: Fish Oil 1,000 MG CAP PO SCH (09:10)
[2021-04-10] MEDS: Fluticasone Propionate Nasal Spray 16 gm Bottle NASAL SCH (09:10)
[2021-04-10] MEDS: Cholecalciferol 1,000 UNITS (25 MCG) TAB PO SCH (09:10)
[2021-04-10] MEDS: Apixaban 5 MG TAB PO SCH ×2 (09:11→20:55)
[2021-04-10] MEDS: Potassium Chloride 20 MEQ TAB PO SCH ×2 (09:11→09:13)
[2021-04-10] MEDS: Aspirin 81 mg Enteric Coated Tablet PO SCH (09:11)
[2021-04-10] MEDS: Multivitamin W/ Minerals 1 TAB PO SCH (09:11)
[2021-04-10] MEDS: Rifampin 300 MG CAP PO SCH ×2 (09:11→20:54)
[2021-04-10] MEDS: Cyanocobalamin (Vitamin B-12) 1,000 MCG TAB PO SCH (09:12)
[2021-04-10] MEDS: Amlodipine 5 MG TAB PO SCH (09:14)
[2021-04-10] MEDS: Atenolol 25 MG TAB PO SCH (09:15)
[2021-04-10] MEDS: Hydrochlorothiazide 25 MG TAB PO SCH (09:17)
[2021-04-10] MEDS: Liothyronine Sodium 5 MCG TAB PO SCH (09:18)
[2021-04-10] MEDS: UBIDECARENONE 30 MG PO SCH (09:19)
[2021-04-10] MEDS: Folic Acid 1 MG TAB PO SCH (09:21)
[2021-04-10] MEDS: Nystatin Cream 15 GM TUBE TOP SCH ×2 (09:21→20:55)
[2021-04-10] MEDS: [UNRECOGNIZED DRUG - OTHER] PO SCH (09:22)
[2021-04-10] MEDS: [UNRECOGNIZED DRUG - OTHER] PO SCH (09:23)
[2021-04-10] MEDS: pyridOXINE 50 MG (B6) TAB PO SCH (09:25)
[2021-04-10] MEDS: CHLORELLA PO SCH (09:25)
[2021-04-10] MEDS: [UNRECOGNIZED DRUG - OTHER] PO SCH (09:26)
[2021-04-10] MEDS ORDERED: Sodium Chloride 0.9% 20 ML ONE (17:18)
[2021-04-10] MEDS: Vancomycin HCl 750 MG in Sodium Chloride 0.9% 250 ML 250 ML IVPB SCH (17:21)
[2021-04-10] MEDS: Vancomycin HCl 500 MG in Sodium Chloride 0.9% 100 ML IVPB SCH (17:21)
[2021-04-10] MEDS: Escitalopram Oxalate 10 mg Tablet PO SCH (20:54)
[2021-04-10] MEDS: Magnesium Oxide 400 MG TAB PO SCH (20:55)
[2021-04-10] MEDS: Melatonin 3 MG TAB PO SCH (20:55)
[2021-04-10] MEDS: Lisinopril 20 MG TAB PO SCH (20:55)
[2021-04-11] MEDS: Levothyroxine Sodium 88 MCG TAB PO SCH (05:16)
[2021-04-11 05:40] LABS: Hemoglobin 8.8 g/dL (12.0-16.0)
[2021-04-11] MEDS: Fluticasone Propionate Nasal Spray 16 gm Bottle NASAL SCH (08:32)
[2021-04-11] MEDS: Apixaban 5 MG TAB PO SCH ×2 (08:33→20:04)
[2021-04-11] MEDS: Aspirin 81 mg Enteric Coated Tablet PO SCH (08:33)
[2021-04-11] MEDS: Amlodipine 10 MG TAB PO SCH (08:33)
[2021-04-11] MEDS: Cholecalciferol 1,000 UNITS (25 MCG) TAB PO SCH (08:34)
[2021-04-11] MEDS: Atenolol 25 MG TAB PO SCH (08:34)
[2021-04-11] MEDS: Cyanocobalamin (Vitamin B-12) 1,000 MCG TAB PO SCH (08:35)
[2021-04-11] MEDS: Nystatin Cream 15 GM TUBE TOP SCH ×2 (08:35→20:07)
[2021-04-11] MEDS: Fish Oil 1,000 MG CAP PO SCH (08:35)
[2021-04-11] MEDS: Folic Acid 1 MG TAB PO SCH (08:36)
[2021-04-11] MEDS: UBIDECARENONE 30 MG PO SCH (08:36)
[2021-04-11] MEDS: Hydrochlorothiazide 25 MG TAB PO SCH (08:36)
[2021-04-11] MEDS: Liothyronine Sodium 5 MCG TAB PO SCH (08:37)
[2021-04-11] MEDS: Multivitamin W/ Minerals 1 TAB PO SCH (08:37)
[2021-04-11] MEDS: [UNRECOGNIZED DRUG - OTHER] PO SCH (08:38)
[2021-04-11] MEDS: [UNRECOGNIZED DRUG - OTHER] PO SCH (08:38)
[2021-04-11] MEDS: [UNRECOGNIZED DRUG - OTHER] PO SCH (08:39)
[2021-04-11] MEDS: CHLORELLA PO SCH (08:39)
[2021-04-11] MEDS: pyridOXINE 50 MG (B6) TAB PO SCH (08:40)
[2021-04-11] MEDS: Potassium Chloride 20 MEQ TAB PO SCH (08:42)
[2021-04-11] MEDS: Rifampin 300 MG CAP PO SCH ×2 (09:06→22:45)
[2021-04-11] MEDS: Vancomycin HCl 750 MG in Sodium Chloride 0.9% 250 ML 250 ML IVPB SCH (17:15)
[2021-04-11] MEDS: Vancomycin HCl 500 MG in Sodium Chloride 0.9% 100 ML IVPB SCH (17:16)
[2021-04-11 17:59] LABS: SARS-CoV-2 PCR by NAA Not Detected (NotDetected)
[2021-04-11] MEDS: Lisinopril 20 MG TAB PO SCH (20:03)
[2021-04-11] MEDS: Magnesium Oxide 400 MG TAB PO SCH (20:03)
[2021-04-11] MEDS: Melatonin 3 MG TAB PO SCH (20:04)
[2021-04-11] MEDS: Escitalopram Oxalate 10 mg Tablet PO SCH (20:04)
[2021-04-12] MEDS: Levothyroxine Sodium 88 MCG TAB PO SCH (05:47)
[2021-04-12] MEDS: Potassium Chloride 20 MEQ TAB PO SCH (08:27)
[2021-04-12] MEDS: Amlodipine 10 MG TAB PO SCH (08:27)
[2021-04-12] MEDS: Aspirin 81 mg Enteric Coated Tablet PO SCH (08:28)
[2021-04-12] MEDS: Apixaban 5 MG TAB PO SCH ×2 (08:28→20:11)
[2021-04-12] MEDS: Atenolol 25 MG TAB PO SCH (08:28)
[2021-04-12] MEDS: Cyanocobalamin (Vitamin B-12) 1,000 MCG TAB PO SCH (08:29)
[2021-04-12] MEDS: Fish Oil 1,000 MG CAP PO SCH (08:29)
[2021-04-12] MEDS: Cholecalciferol 1,000 UNITS (25 MCG) TAB PO SCH (08:29)
[2021-04-12] MEDS: Fluticasone Propionate Nasal Spray 16 gm Bottle NASAL SCH (08:29)
[2021-04-12] MEDS: Folic Acid 1 MG TAB PO SCH (08:30)
[2021-04-12] MEDS: Liothyronine Sodium 5 MCG TAB PO SCH (08:31)
[2021-04-12] MEDS: Hydrochlorothiazide 25 MG TAB PO SCH (08:31)
[2021-04-12] MEDS: Multivitamin W/ Minerals 1 TAB PO SCH (08:31)
[2021-04-12] MEDS: UBIDECARENONE 30 MG PO SCH (08:32)
[2021-04-12] MEDS: [UNRECOGNIZED DRUG - OTHER] PO SCH (08:32)
[2021-04-12] MEDS: CHLORELLA PO SCH (08:33)
[2021-04-12] MEDS: [UNRECOGNIZED DRUG - OTHER] PO SCH (08:33)
[2021-04-12] MEDS: Nystatin Cream 15 GM TUBE TOP SCH ×2 (08:33→20:11)
[2021-04-12] MEDS: pyridOXINE 50 MG (B6) TAB PO SCH (08:34)
[2021-04-12] MEDS: [UNRECOGNIZED DRUG - OTHER] PO SCH (08:34)
[2021-04-12] MEDS: Rifampin 300 MG CAP PO SCH ×2 (11:42→20:11)
[2021-04-12] MEDS: Vancomycin HCl 750 MG in Sodium Chloride 0.9% 250 ML 250 ML IVPB SCH (17:19)
[2021-04-12] MEDS: Vancomycin HCl 500 MG in Sodium Chloride 0.9% 100 ML IVPB SCH (17:19)
[2021-04-12] MEDS: Melatonin 3 MG TAB PO SCH (20:11)
[2021-04-12] MEDS: Magnesium Oxide 400 MG TAB PO SCH (20:11)
[2021-04-12] MEDS: Lisinopril 20 MG TAB PO SCH (20:11)
[2021-04-12] MEDS: Escitalopram Oxalate 10 mg Tablet PO SCH (20:12)
[2021-04-12] MEDS: Acetaminophen 325 MG TAB PO PRN (20:12)
[2021-04-13] MEDS: Levothyroxine Sodium 88 MCG TAB PO SCH (06:07)
[2021-04-13] MEDS: Potassium Chloride 20 MEQ TAB PO SCH (07:57)
[2021-04-13] MEDS: Amlodipine 10 MG TAB PO SCH (07:59)
[2021-04-13] MEDS: Apixaban 5 MG TAB PO SCH ×2 (08:00→20:22)
[2021-04-13] MEDS: Aspirin 81 mg Enteric Coated Tablet PO SCH (08:01)
[2021-04-13] MEDS: Atenolol 25 MG TAB PO SCH (08:01)
[2021-04-13] MEDS: Cholecalciferol 1,000 UNITS (25 MCG) TAB PO SCH (08:02)
[2021-04-13] MEDS: pyridOXINE 50 MG (B6) TAB PO SCH (08:03)
[2021-04-13] MEDS: Cyanocobalamin (Vitamin B-12) 1,000 MCG TAB PO SCH (08:04)
[2021-04-13] MEDS: Hydrochlorothiazide 25 MG TAB PO SCH (08:04)
[2021-04-13] MEDS: Multivitamin W/ Minerals 1 TAB PO SCH (08:04)
[2021-04-13] MEDS: Fish Oil 1,000 MG CAP PO SCH (08:04)
[2021-04-13] MEDS: Folic Acid 1 MG TAB PO SCH (08:05)
[2021-04-13] MEDS: Liothyronine Sodium 5 MCG TAB PO SCH (08:06)
[2021-04-13] MEDS: [UNRECOGNIZED DRUG - OTHER] PO SCH (08:08)
[2021-04-13] MEDS: CHLORELLA PO SCH (08:08)
[2021-04-13] MEDS: Nystatin Cream 15 GM TUBE TOP SCH ×2 (08:08→20:22)
[2021-04-13] MEDS: Fluticasone Propionate Nasal Spray 16 gm Bottle NASAL SCH (08:08)
[2021-04-13] MEDS: UBIDECARENONE 30 MG PO SCH (08:08)
[2021-04-13] MEDS: [UNRECOGNIZED DRUG - OTHER] PO SCH (08:08)
[2021-04-13] MEDS: [UNRECOGNIZED DRUG - OTHER] PO SCH (08:08)
[2021-04-13] MEDS: Acetaminophen 325 MG TAB PO PRN (09:09)
[2021-04-13] MEDS: Rifampin 300 MG CAP PO SCH ×2 (09:11→20:21)
[2021-04-13] MEDS ORDERED: Sodium Chloride 0.9% 20 ML ONE (14:41)
[2021-04-13] MEDS: Vancomycin HCl 750 MG in Sodium Chloride 0.9% 250 ML 250 ML IVPB SCH (16:57)
[2021-04-13] MEDS: Vancomycin HCl 500 MG in Sodium Chloride 0.9% 100 ML IVPB SCH (17:00)
[2021-04-13] MEDS: Lisinopril 20 MG TAB PO SCH (20:21)
[2021-04-13] MEDS: Magnesium Oxide 400 MG TAB PO SCH (20:22)
[2021-04-13] MEDS: Melatonin 3 MG TAB PO SCH (20:22)
[2021-04-13] MEDS: Escitalopram Oxalate 10 mg Tablet PO SCH (20:22)
[2021-04-14] MEDS: Levothyroxine Sodium 88 MCG TAB PO SCH (05:28)
[2021-04-14 06:45] LABS: Hemoglobin 9.2 g/dL (12.0-16.0)
[2021-04-14] MEDS ORDERED: Sodium Chloride 0.9% 20 ML ONE (07:18)
[2021-04-14] MEDS: Fluticasone Propionate Nasal Spray 16 gm Bottle NASAL SCH (08:05)
[2021-04-14] MEDS: Potassium Chloride 20 MEQ TAB PO SCH (08:05)
[2021-04-14] MEDS: Fish Oil 1,000 MG CAP PO SCH (08:06)
[2021-04-14] MEDS: Multivitamin W/ Minerals 1 TAB PO SCH (08:06)
[2021-04-14] MEDS: Cholecalciferol 1,000 UNITS (25 MCG) TAB PO SCH (08:06)
[2021-04-14] MEDS: Atenolol 25 MG TAB PO SCH (08:07)
[2021-04-14] MEDS: Liothyronine Sodium 5 MCG TAB PO SCH (08:08)
[2021-04-14] MEDS: Amlodipine 10 MG TAB PO SCH (08:09)
[2021-04-14] MEDS: Cyanocobalamin (Vitamin B-12) 1,000 MCG TAB PO SCH (08:10)
[2021-04-14] MEDS: Hydrochlorothiazide 25 MG TAB PO SCH (08:12)
[2021-04-14] MEDS: Apixaban 5 MG TAB PO SCH ×2 (08:12→20:45)
[2021-04-14] MEDS: Aspirin 81 mg Enteric Coated Tablet PO SCH (08:12)
[2021-04-14] MEDS: pyridOXINE 50 MG (B6) TAB PO SCH (08:13)
[2021-04-14] MEDS: Folic Acid 1 MG TAB PO SCH (08:14)
[2021-04-14] MEDS: [UNRECOGNIZED DRUG - OTHER] PO SCH (08:18)
[2021-04-14] MEDS: [UNRECOGNIZED DRUG - OTHER] PO SCH (08:18)
[2021-04-14] MEDS: UBIDECARENONE 30 MG PO SCH (08:18)
[2021-04-14] MEDS: Nystatin Cream 15 GM TUBE TOP SCH ×2 (08:18→20:46)
[2021-04-14] MEDS: [UNRECOGNIZED DRUG - OTHER] PO SCH (08:19)
[2021-04-14] MEDS: CHLORELLA PO SCH (08:19)
[2021-04-14] MEDS: Rifampin 300 MG CAP PO SCH ×2 (10:46→20:45)
[2021-04-14] MEDS: Vancomycin HCl 750 MG in Sodium Chloride 0.9% 250 ML 250 ML IVPB SCH (17:06)
[2021-04-14] MEDS: Vancomycin HCl 500 MG in Sodium Chloride 0.9% 100 ML IVPB SCH (17:06)
[2021-04-14] MEDS: Lisinopril 20 MG TAB PO SCH (20:44)
[2021-04-14] MEDS: Magnesium Oxide 400 MG TAB PO SCH (20:45)
[2021-04-14] MEDS: Melatonin 3 MG TAB PO SCH (20:45)
[2021-04-14] MEDS: Escitalopram Oxalate 10 mg Tablet PO SCH (20:45)
[2021-04-15] MEDS: Levothyroxine Sodium 88 MCG TAB PO SCH (05:12)
[2021-04-15 07:12] LABS: ALT (SGPT) 12 U/L (8-55); AST (SGOT) 20 U/L (5-34); Albumin 3.2 g/dL (3.4-4.8); Alkaline Phosphatase 64 U/L (40-110); CRP (Inflammatory) Less than 0.50 mg/dL (= or < 0.5); Calc. Creatinine Clearance 54 mL/min (70-130); Globulin 2.6 g/dL (2.4-3.5)
[2021-04-15 07:13] LABS: Anion Gap 10 mmol/L (10-20); BUN (Urea Nitrogen) 15 mg/dL (9.8-20.1); Bilirubin, Total 0.3 mg/dL (0.2-1.2); Carbon Dioxide 28 mmol/L (23-31); Chloride 101 mmol/L (98-107); Glucose 86 mg/dL (83-110); Potassium 3.3 mmol/L (3.5-5.1); Protein, Total 5.8 g/dL (5.8-8.1); Sodium 136 mmol/L (136-145)
[2021-04-15 07:14] LABS: Hemoglobin 9.4 g/dL (12.0-16.0); Mean Corpuscular Volume 92.6 fL (78.0-98.0); Red Blood Cell (RBC) Count 3.03 mill/uL (4.20-5.40); White Blood Cell (WBC) Count 2.4 thou/uL (4.8-10.8)
[2021-04-15 07:15] LABS: #Eosinphils 0.2 thou/uL (0.0-0.7); #Lymphocytes 0.7 thou/uL (1.20-3.40); #Monocytes 0.5 thou/uL (0.11-0.59); #Neutrophils 1.1 thou/uL (1.40-6.50); %Basophils 1.9 % (0.0-1.0); %Lymphocytes 28.2 % (21.0-51.0); %Monocytes 19.1 % (0.0-10.0); %Neutrophils 43.9 % (42.0-75.0); Manual Diff?? NO; Mean Corpuscular HGB CONC 33.6 g/dL (32.0-36.0); Mean Corpuscular Hemoglobin 31.1 pg (27.0-31.0); Mean Platelet Volume 6.8 fL (7.4-10.4); Platelet Count 189 thou/uL (130-400); RBC Distribution Width 13.2 % (11.5-14.5)
[2021-04-15] MEDS: Potassium Chloride 20 MEQ TAB PO SCH ×2 (08:17→17:29)
[2021-04-15] MEDS: Atenolol 25 MG TAB PO SCH (08:20)
[2021-04-15] MEDS: Aspirin 81 mg Enteric Coated Tablet PO SCH (08:20)
[2021-04-15] MEDS: Apixaban 5 MG TAB PO SCH ×2 (08:20→20:28)
[2021-04-15] MEDS: Cyanocobalamin (Vitamin B-12) 1,000 MCG TAB PO SCH (08:21)
[2021-04-15] MEDS: Cholecalciferol 1,000 UNITS (25 MCG) TAB PO SCH (08:21)
[2021-04-15] MEDS: Fish Oil 1,000 MG CAP PO SCH (08:21)
[2021-04-15] MEDS: Fluticasone Propionate Nasal Spray 16 gm Bottle NASAL SCH (08:21)
[2021-04-15] MEDS: Folic Acid 1 MG TAB PO SCH (08:22)
[2021-04-15] MEDS: Hydrochlorothiazide 25 MG TAB PO SCH (08:23)
[2021-04-15] MEDS: Liothyronine Sodium 5 MCG TAB PO SCH (08:23)
[2021-04-15] MEDS: UBIDECARENONE 30 MG PO SCH (08:24)
[2021-04-15] MEDS: [UNRECOGNIZED DRUG - OTHER] PO SCH (08:24)
[2021-04-15] MEDS: Multivitamin W/ Minerals 1 TAB PO SCH (08:24)
[2021-04-15] MEDS: [UNRECOGNIZED DRUG - OTHER] PO SCH (08:25)
[2021-04-15] MEDS: Nystatin Cream 15 GM TUBE TOP SCH ×2 (08:25→20:29)
[2021-04-15] MEDS: CHLORELLA PO SCH (08:26)
[2021-04-15] MEDS: [UNRECOGNIZED DRUG - OTHER] PO SCH (08:26)
[2021-04-15] MEDS: pyridOXINE 50 MG (B6) TAB PO SCH (08:27)
[2021-04-15] MEDS ORDERED: Amlodipine 10 MG TAB PO SCH (09:00)
[2021-04-15] MEDS: Acetaminophen 325 MG TAB PO PRN (09:51)
[2021-04-15] MEDS: Rifampin 300 MG CAP PO SCH ×2 (09:51→20:28)
[2021-04-15] MEDS: Vancomycin HCl 750 MG in Sodium Chloride 0.9% 250 ML 250 ML IVPB SCH (17:29)
[2021-04-15] MEDS: Vancomycin HCl 500 MG in Sodium Chloride 0.9% 100 ML IVPB SCH (17:31)
[2021-04-15] MEDS: Melatonin 3 MG TAB PO SCH (20:28)
[2021-04-15] MEDS: Escitalopram Oxalate 10 mg Tablet PO SCH (20:28)
[2021-04-15] MEDS: Lisinopril 20 MG TAB PO SCH (20:28)
[2021-04-15] MEDS: Magnesium Oxide 400 MG TAB PO SCH (20:29)
[2021-04-16] MEDS: Amlodipine 10 MG TAB PO SCH (05:26)
[2021-04-16] MEDS: Atenolol 25 MG TAB PO SCH (05:26)
[2021-04-16] MEDS: Levothyroxine Sodium 88 MCG TAB PO SCH (05:26)
[2021-04-16] MEDS: Potassium Chloride 20 MEQ TAB PO SCH ×2 (08:32→17:13)
[2021-04-16] MEDS: Cyanocobalamin (Vitamin B-12) 1,000 MCG TAB PO SCH (08:32)
[2021-04-16] MEDS: Cholecalciferol 1,000 UNITS (25 MCG) TAB PO SCH (08:32)
[2021-04-16] MEDS: Apixaban 5 MG TAB PO SCH ×2 (08:32→20:33)
[2021-04-16] MEDS: Fish Oil 1,000 MG CAP PO SCH (08:32)
[2021-04-16] MEDS: Aspirin 81 mg Enteric Coated Tablet PO SCH (08:32)
[2021-04-16] MEDS: Folic Acid 1 MG TAB PO SCH (08:33)
[2021-04-16] MEDS: Fluticasone Propionate Nasal Spray 16 gm Bottle NASAL SCH (08:33)
[2021-04-16] MEDS: Multivitamin W/ Minerals 1 TAB PO SCH (08:34)
[2021-04-16] MEDS: Liothyronine Sodium 5 MCG TAB PO SCH (08:34)
[2021-04-16] MEDS: Hydrochlorothiazide 25 MG TAB PO SCH (08:34)
[2021-04-16] MEDS: [UNRECOGNIZED DRUG - OTHER] PO SCH (08:35)
[2021-04-16] MEDS: [UNRECOGNIZED DRUG - OTHER] PO SCH (08:35)
[2021-04-16] MEDS: UBIDECARENONE 30 MG PO SCH (08:35)
[2021-04-16] MEDS: CHLORELLA PO SCH (08:36)
[2021-04-16] MEDS: [UNRECOGNIZED DRUG - OTHER] PO SCH (08:37)
[2021-04-16] MEDS: pyridOXINE 50 MG (B6) TAB PO SCH (08:37)
[2021-04-16] MEDS: Nystatin Cream 15 GM TUBE TOP SCH ×2 (08:39→20:32)
[2021-04-16] MEDS: Rifampin 300 MG CAP PO SCH ×3 (11:18→21:00)
[2021-04-16] MEDS: Vancomycin HCl 750 MG in Sodium Chloride 0.9% 250 ML 250 ML IVPB SCH (17:14)
[2021-04-16] MEDS: Vancomycin HCl 500 MG in Sodium Chloride 0.9% 100 ML IVPB SCH (17:15)
[2021-04-16] MEDS: Magnesium Oxide 400 MG TAB PO SCH (20:32)
[2021-04-16] MEDS: Lisinopril 20 MG TAB PO SCH (20:33)
[2021-04-16] MEDS: Melatonin 3 MG TAB PO SCH (20:33)
[2021-04-16] MEDS: Escitalopram Oxalate 10 mg Tablet PO SCH (20:34)
[2021-04-17] MEDS: Amlodipine 10 MG TAB PO SCH (05:45)
[2021-04-17] MEDS: Levothyroxine Sodium 88 MCG TAB PO SCH (05:46)
[2021-04-17] MEDS: Atenolol 25 MG TAB PO SCH (05:46)
[2021-04-17] MEDS: Fish Oil 1,000 MG CAP PO SCH (07:59)
[2021-04-17] MEDS: Folic Acid 1 MG TAB PO SCH (07:59)
[2021-04-17] MEDS: Apixaban 5 MG TAB PO SCH ×2 (07:59→20:03)
[2021-04-17] MEDS: Cholecalciferol 1,000 UNITS (25 MCG) TAB PO SCH (08:02)
[2021-04-17] MEDS: pyridOXINE 50 MG (B6) TAB PO SCH (08:03)
[2021-04-17] MEDS: Aspirin 81 mg Enteric Coated Tablet PO SCH (08:04)
[2021-04-17] MEDS: Multivitamin W/ Minerals 1 TAB PO SCH (08:04)
[2021-04-17] MEDS: Liothyronine Sodium 5 MCG TAB PO SCH (08:04)
[2021-04-17] MEDS: Potassium Chloride 20 MEQ TAB PO SCH ×2 (08:05→17:22)
[2021-04-17] MEDS: Hydrochlorothiazide 25 MG TAB PO SCH (08:05)
[2021-04-17] MEDS: Cyanocobalamin (Vitamin B-12) 1,000 MCG TAB PO SCH (08:06)
[2021-04-17] MEDS: Fluticasone Propionate Nasal Spray 16 gm Bottle NASAL SCH (08:06)
[2021-04-17] MEDS: [UNRECOGNIZED DRUG - OTHER] PO SCH (08:07)
[2021-04-17] MEDS: UBIDECARENONE 30 MG PO SCH (08:08)
[2021-04-17] MEDS: Nystatin Cream 15 GM TUBE TOP SCH ×2 (08:09→20:02)
[2021-04-17] MEDS: [UNRECOGNIZED DRUG - OTHER] PO SCH (08:10)
[2021-04-17] MEDS: [UNRECOGNIZED DRUG - OTHER] PO SCH (08:11)
[2021-04-17] MEDS: CHLORELLA PO SCH (08:11)
[2021-04-17] MEDS: Acetaminophen 325 MG TAB PO PRN (08:53)
[2021-04-17] MEDS: Rifampin 300 MG CAP PO SCH ×2 (09:44→21:03)
[2021-04-17] MEDS: Vancomycin HCl 750 MG in Sodium Chloride 0.9% 250 ML 250 ML IVPB SCH (17:22)
[2021-04-17] MEDS: Vancomycin HCl 500 MG in Sodium Chloride 0.9% 100 ML IVPB SCH (17:23)
[2021-04-17] MEDS: Magnesium Oxide 400 MG TAB PO SCH (20:02)
[2021-04-17] MEDS: Lisinopril 20 MG TAB PO SCH (20:02)
[2021-04-17] MEDS: Escitalopram Oxalate 10 mg Tablet PO SCH (20:03)
[2021-04-17] MEDS: Melatonin 3 MG TAB PO SCH (20:04)
[2021-04-18] MEDS: Amlodipine 10 MG TAB PO SCH (05:44)
[2021-04-18] MEDS: Levothyroxine Sodium 88 MCG TAB PO SCH (05:44)
[2021-04-18] MEDS: Atenolol 25 MG TAB PO SCH (05:45)
[2021-04-18] MEDS: Potassium Chloride 20 MEQ TAB PO SCH ×2 (07:54→17:26)
[2021-04-18] MEDS: [UNRECOGNIZED DRUG - OTHER] PO SCH (07:54)
[2021-04-18] MEDS: [UNRECOGNIZED DRUG - OTHER] PO SCH (07:55)
[2021-04-18] MEDS: CHLORELLA PO SCH (07:56)
[2021-04-18] MEDS: [UNRECOGNIZED DRUG - OTHER] PO SCH (07:57)
[2021-04-18] MEDS: Aspirin 81 mg Enteric Coated Tablet PO SCH (07:58)
[2021-04-18] MEDS: Fluticasone Propionate Nasal Spray 16 gm Bottle NASAL SCH (07:58)
[2021-04-18] MEDS: Nystatin Cream 15 GM TUBE TOP SCH ×2 (07:58→20:09)
[2021-04-18] MEDS: Multivitamin W/ Minerals 1 TAB PO SCH (07:58)
[2021-04-18] MEDS: Apixaban 5 MG TAB PO SCH ×2 (07:58→20:08)
[2021-04-18] MEDS: Fish Oil 1,000 MG CAP PO SCH (07:58)
[2021-04-18] MEDS: Hydrochlorothiazide 25 MG TAB PO SCH (07:59)
[2021-04-18] MEDS: Folic Acid 1 MG TAB PO SCH (07:59)
[2021-04-18] MEDS: Liothyronine Sodium 5 MCG TAB PO SCH (08:01)
[2021-04-18] MEDS: pyridOXINE 50 MG (B6) TAB PO SCH (08:02)
[2021-04-18] MEDS: Cyanocobalamin (Vitamin B-12) 1,000 MCG TAB PO SCH (08:02)
[2021-04-18] MEDS: Cholecalciferol 1,000 UNITS (25 MCG) TAB PO SCH (08:02)
[2021-04-18] MEDS: UBIDECARENONE 30 MG PO SCH (08:04)
[2021-04-18] MEDS: Rifampin 300 MG CAP PO SCH ×2 (10:18→20:13)
[2021-04-18] MEDS: Vancomycin HCl 750 MG in Sodium Chloride 0.9% 250 ML 250 ML IVPB SCH (17:35)
[2021-04-18] MEDS: Vancomycin HCl 500 MG in Sodium Chloride 0.9% 100 ML IVPB SCH (17:37)
[2021-04-18] MEDS: Escitalopram Oxalate 10 mg Tablet PO SCH (20:07)
[2021-04-18] MEDS: Magnesium Oxide 400 MG TAB PO SCH (20:07)
[2021-04-18] MEDS: Lisinopril 20 MG TAB PO SCH (20:08)
[2021-04-18] MEDS: Melatonin 3 MG TAB PO SCH (20:09)
[2021-04-19] MEDS: Levothyroxine Sodium 88 MCG TAB PO SCH (06:03)
[2021-04-19] MEDS: Amlodipine 10 MG TAB PO SCH (06:03)
[2021-04-19] MEDS: Atenolol 25 MG TAB PO SCH (06:05)
[2021-04-19] MEDS: [UNRECOGNIZED DRUG - OTHER] PO SCH (08:04)
[2021-04-19] MEDS: [UNRECOGNIZED DRUG - OTHER] PO SCH (08:05)
[2021-04-19] MEDS: [UNRECOGNIZED DRUG - OTHER] PO SCH (08:06)
[2021-04-19] MEDS: CHLORELLA PO SCH (08:07)
[2021-04-19] MEDS: Potassium Chloride 20 MEQ TAB PO SCH ×2 (08:08→16:59)
[2021-04-19] MEDS: Fish Oil 1,000 MG CAP PO SCH (08:08)
[2021-04-19] MEDS: Cholecalciferol 1,000 UNITS (25 MCG) TAB PO SCH (08:08)
[2021-04-19] MEDS: Fluticasone Propionate Nasal Spray 16 gm Bottle NASAL SCH (08:08)
[2021-04-19] MEDS: pyridOXINE 50 MG (B6) TAB PO SCH (08:09)
[2021-04-19] MEDS: Liothyronine Sodium 5 MCG TAB PO SCH (08:10)
[2021-04-19] MEDS: Folic Acid 1 MG TAB PO SCH (08:11)
[2021-04-19] MEDS: Apixaban 5 MG TAB PO SCH ×2 (08:11→20:19)
[2021-04-19] MEDS: Hydrochlorothiazide 25 MG TAB PO SCH (08:12)
[2021-04-19] MEDS: UBIDECARENONE 30 MG PO SCH (08:13)
[2021-04-19] MEDS: Multivitamin W/ Minerals 1 TAB PO SCH (08:13)
[2021-04-19] MEDS: Cyanocobalamin (Vitamin B-12) 1,000 MCG TAB PO SCH (08:13)
[2021-04-19] MEDS: Aspirin 81 mg Enteric Coated Tablet PO SCH (08:13)
[2021-04-19] MEDS: Nystatin Cream 15 GM TUBE TOP SCH ×2 (08:14→20:20)
[2021-04-19] MEDS: Rifampin 300 MG CAP PO SCH ×2 (10:17→20:20)
[2021-04-19 16:52] LABS: SARS-CoV-2 PCR by NAA Not Detected (NotDetected)
[2021-04-19] MEDS: Vancomycin HCl 750 MG in Sodium Chloride 0.9% 250 ML 250 ML IVPB SCH (17:00)
[2021-04-19] MEDS: Vancomycin HCl 500 MG in Sodium Chloride 0.9% 100 ML IVPB SCH (17:00)
[2021-04-19] MEDS: Melatonin 3 MG TAB PO SCH (20:19)
[2021-04-19] MEDS: Escitalopram Oxalate 10 mg Tablet PO SCH (20:20)
[2021-04-19] MEDS: Magnesium Oxide 400 MG TAB PO SCH (20:20)
[2021-04-19] MEDS: Lisinopril 20 MG TAB PO SCH (20:20)
[2021-04-20] MEDS: Amlodipine 10 MG TAB PO SCH (05:30)
[2021-04-20] MEDS: Atenolol 25 MG TAB PO SCH (05:30)
[2021-04-20] MEDS: Levothyroxine Sodium 88 MCG TAB PO SCH (05:30)
[2021-04-20 06:29] LABS: Hemoglobin 9.2 g/dL (12.0-16.0)
[2021-04-20] MEDS: Fluticasone Propionate Nasal Spray 16 gm Bottle NASAL SCH (07:59)
[2021-04-20] MEDS: Nystatin Cream 15 GM TUBE TOP SCH ×2 (07:59→20:09)
[2021-04-20] MEDS: Potassium Chloride 20 MEQ TAB PO SCH ×2 (07:59→17:15)
[2021-04-20] MEDS: Liothyronine Sodium 5 MCG TAB PO SCH (08:00)
[2021-04-20] MEDS: Apixaban 5 MG TAB PO SCH ×2 (08:01→20:06)
[2021-04-20] MEDS: pyridOXINE 50 MG (B6) TAB PO SCH (08:01)
[2021-04-20] MEDS: Multivitamin W/ Minerals 1 TAB PO SCH (08:01)
[2021-04-20] MEDS: Fish Oil 1,000 MG CAP PO SCH (08:01)
[2021-04-20] MEDS: Hydrochlorothiazide 25 MG TAB PO SCH (08:01)
[2021-04-20] MEDS: Aspirin 81 mg Enteric Coated Tablet PO SCH (08:01)
[2021-04-20] MEDS: [UNRECOGNIZED DRUG - OTHER] PO SCH (08:02)
[2021-04-20] MEDS: Cholecalciferol 1,000 UNITS (25 MCG) TAB PO SCH (08:02)
[2021-04-20] MEDS: Cyanocobalamin (Vitamin B-12) 1,000 MCG TAB PO SCH (08:02)
[2021-04-20] MEDS: CHLORELLA PO SCH (08:03)
[2021-04-20] MEDS: [UNRECOGNIZED DRUG - OTHER] PO SCH (08:03)
[2021-04-20] MEDS: [UNRECOGNIZED DRUG - OTHER] PO SCH (08:04)
[2021-04-20] MEDS: UBIDECARENONE 30 MG PO SCH (08:04)
[2021-04-20] MEDS: Rifampin 300 MG CAP PO SCH ×2 (08:07→20:08)
[2021-04-20] MEDS: Folic Acid 1 MG TAB PO SCH (08:14)
[2021-04-20] MEDS: Acetaminophen 325 MG TAB PO PRN (13:49)
[2021-04-20 16:37] LABS: Vancomycin, Trough 18.9 ug/mL
[2021-04-20] MEDS: Vancomycin HCl 500 MG in Sodium Chloride 0.9% 100 ML IVPB SCH (17:15)
[2021-04-20] MEDS: Vancomycin HCl 750 MG in Sodium Chloride 0.9% 250 ML 250 ML IVPB SCH (17:16)
[2021-04-20] MEDS: Melatonin 3 MG TAB PO SCH (20:06)
[2021-04-20] MEDS: Lisinopril 20 MG TAB PO SCH (20:07)
[2021-04-20] MEDS: Magnesium Oxide 400 MG TAB PO SCH (20:07)
[2021-04-20] MEDS: Escitalopram Oxalate 10 mg Tablet PO SCH (20:08)
[2021-04-21] MEDS: Levothyroxine Sodium 88 MCG TAB PO SCH (05:29)
[2021-04-21] MEDS: Amlodipine 10 MG TAB PO SCH (05:30)
[2021-04-21] MEDS: Atenolol 25 MG TAB PO SCH (05:30)
[2021-04-21 06:53] LABS: Anion Gap 10 mmol/L (10-20); BUN (Urea Nitrogen) 16 mg/dL (9.8-20.1); Calc. Creatinine Clearance 50 mL/min (70-130); Carbon Dioxide 29 mmol/L (23-31); Chloride 102 mmol/L (98-107); Glucose 86 mg/dL (83-110); Potassium 3.7 mmol/L (3.5-5.1); Sodium 137 mmol/L (136-145)
[2021-04-21] MEDS: Potassium Chloride 20 MEQ TAB PO SCH ×2 (07:54→17:28)
[2021-04-21] MEDS: Aspirin 81 mg Enteric Coated Tablet PO SCH (07:55)
[2021-04-21] MEDS: Cholecalciferol 1,000 UNITS (25 MCG) TAB PO SCH (07:55)
[2021-04-21] MEDS: Apixaban 5 MG TAB PO SCH ×2 (07:55→20:37)
[2021-04-21] MEDS: Folic Acid 1 MG TAB PO SCH (07:56)
[2021-04-21] MEDS: Cyanocobalamin (Vitamin B-12) 1,000 MCG TAB PO SCH (07:56)
[2021-04-21] MEDS: Fish Oil 1,000 MG CAP PO SCH (07:56)
[2021-04-21] MEDS: Fluticasone Propionate Nasal Spray 16 gm Bottle NASAL SCH (07:56)
[2021-04-21] MEDS: Liothyronine Sodium 5 MCG TAB PO SCH (07:57)
[2021-04-21] MEDS: Hydrochlorothiazide 25 MG TAB PO SCH (07:57)
[2021-04-21] MEDS: UBIDECARENONE 30 MG PO SCH (07:58)
[2021-04-21] MEDS: Multivitamin W/ Minerals 1 TAB PO SCH (07:58)
[2021-04-21] MEDS: Nystatin Cream 15 GM TUBE TOP SCH ×2 (07:58→20:38)
[2021-04-21] MEDS: [UNRECOGNIZED DRUG - OTHER] PO SCH (07:58)
[2021-04-21] MEDS: [UNRECOGNIZED DRUG - OTHER] PO SCH (07:59)
[2021-04-21] MEDS: CHLORELLA PO SCH (07:59)
[2021-04-21] MEDS: [UNRECOGNIZED DRUG - OTHER] PO SCH (07:59)
[2021-04-21] MEDS: pyridOXINE 50 MG (B6) TAB PO SCH (08:00)
[2021-04-21] MEDS: Rifampin 300 MG CAP PO SCH ×2 (09:03→20:39)
[2021-04-21] MEDS: Acetaminophen 325 MG TAB PO PRN ×2 (09:03→20:37)
[2021-04-21] MEDS: Vancomycin HCl 750 MG in Sodium Chloride 0.9% 250 ML 250 ML IVPB SCH (17:28)
[2021-04-21] MEDS: Vancomycin HCl 500 MG in Sodium Chloride 0.9% 100 ML IVPB SCH (17:29)
[2021-04-21] MEDS: Escitalopram Oxalate 10 mg Tablet PO SCH (20:35)
[2021-04-21] MEDS: Magnesium Oxide 400 MG TAB PO SCH (20:37)
[2021-04-21] MEDS: Lisinopril 20 MG TAB PO SCH (20:38)
[2021-04-21] MEDS: Melatonin 3 MG TAB PO SCH (20:39)
[2021-04-22] MEDS: Amlodipine 10 MG TAB PO SCH (05:31)
[2021-04-22] MEDS: Levothyroxine Sodium 88 MCG TAB PO SCH (05:31)
[2021-04-22] MEDS: Atenolol 25 MG TAB PO SCH (05:32)
[2021-04-22] MEDS: Potassium Chloride 20 MEQ TAB PO SCH ×2 (07:50→17:01)
[2021-04-22] MEDS: Hydrochlorothiazide 25 MG TAB PO SCH (09:06)
[2021-04-22] MEDS: Fish Oil 1,000 MG CAP PO SCH (09:06)
[2021-04-22] MEDS: Apixaban 5 MG TAB PO SCH ×2 (09:07→20:32)
[2021-04-22] MEDS: Liothyronine Sodium 5 MCG TAB PO SCH (09:07)
[2021-04-22] MEDS: Aspirin 81 mg Enteric Coated Tablet PO SCH (09:08)
[2021-04-22] MEDS: pyridOXINE 50 MG (B6) TAB PO SCH (09:12)
[2021-04-22] MEDS: Rifampin 300 MG CAP PO SCH ×2 (09:13→20:34)
[2021-04-22] MEDS: Cholecalciferol 1,000 UNITS (25 MCG) TAB PO SCH (09:14)
[2021-04-22] MEDS: Multivitamin W/ Minerals 1 TAB PO SCH (09:14)
[2021-04-22] MEDS: Folic Acid 1 MG TAB PO SCH (09:14)
[2021-04-22] MEDS: Cyanocobalamin (Vitamin B-12) 1,000 MCG TAB PO SCH (09:15)
[2021-04-22] MEDS: Fluticasone Propionate Nasal Spray 16 gm Bottle NASAL SCH (09:17)
[2021-04-22] MEDS: [UNRECOGNIZED DRUG - OTHER] PO SCH (09:18)
[2021-04-22] MEDS: [UNRECOGNIZED DRUG - OTHER] PO SCH (09:19)
[2021-04-22] MEDS: Nystatin Cream 15 GM TUBE TOP SCH ×2 (09:19→20:31)
[2021-04-22] MEDS: UBIDECARENONE 30 MG PO SCH (09:26)
[2021-04-22] MEDS: CHLORELLA PO SCH (09:26)
[2021-04-22] MEDS: [UNRECOGNIZED DRUG - OTHER] PO SCH (09:34)
[2021-04-22] MEDS: Vancomycin HCl 750 MG in Sodium Chloride 0.9% 250 ML 250 ML IVPB SCH (16:57)
[2021-04-22] MEDS: Vancomycin HCl 500 MG in Sodium Chloride 0.9% 100 ML IVPB SCH (17:00)
[2021-04-22] MEDS: Lisinopril 20 MG TAB PO SCH (20:32)
[2021-04-22] MEDS: Melatonin 3 MG TAB PO SCH (20:32)
[2021-04-22] MEDS: Magnesium Oxide 400 MG TAB PO SCH (20:33)
[2021-04-22] MEDS: Escitalopram Oxalate 10 mg Tablet PO SCH (20:33)
[2021-04-22] MEDS: Acetaminophen 325 MG TAB PO PRN (20:34)
[2021-04-23] MEDS: Levothyroxine Sodium 88 MCG TAB PO SCH (05:41)
[2021-04-23] MEDS: Atenolol 25 MG TAB PO SCH (05:41)
[2021-04-23] MEDS: Amlodipine 10 MG TAB PO SCH (05:43)
[2021-04-23 06:20] LABS: Hemoglobin 9.3 g/dL (12.0-16.0)
[2021-04-23] MEDS: Hydrochlorothiazide 25 MG TAB PO SCH (08:14)
[2021-04-23] MEDS: Liothyronine Sodium 5 MCG TAB PO SCH (08:14)
[2021-04-23] MEDS: Aspirin 81 mg Enteric Coated Tablet PO SCH (08:14)
[2021-04-23] MEDS: Fish Oil 1,000 MG CAP PO SCH (08:14)
[2021-04-23] MEDS: Folic Acid 1 MG TAB PO SCH (08:15)
[2021-04-23] MEDS: Cyanocobalamin (Vitamin B-12) 1,000 MCG TAB PO SCH (08:15)
[2021-04-23] MEDS: pyridOXINE 50 MG (B6) TAB PO SCH (08:15)
[2021-04-23] MEDS: Multivitamin W/ Minerals 1 TAB PO SCH (08:16)
[2021-04-23] MEDS: Apixaban 5 MG TAB PO SCH ×2 (08:16→20:11)
[2021-04-23] MEDS: [UNRECOGNIZED DRUG - OTHER] PO SCH (08:16)
[2021-04-23] MEDS: Cholecalciferol 1,000 UNITS (25 MCG) TAB PO SCH (08:16)
[2021-04-23] MEDS: [UNRECOGNIZED DRUG - OTHER] PO SCH (08:17)
[2021-04-23] MEDS: Nystatin Cream 15 GM TUBE TOP SCH ×2 (08:18→20:12)
[2021-04-23] MEDS: Fluticasone Propionate Nasal Spray 16 gm Bottle NASAL SCH (08:18)
[2021-04-23] MEDS: UBIDECARENONE 30 MG PO SCH (08:18)
[2021-04-23] MEDS: [UNRECOGNIZED DRUG - OTHER] PO SCH (08:18)
[2021-04-23] MEDS: CHLORELLA PO SCH (08:19)
[2021-04-23] MEDS: Potassium Chloride 20 MEQ TAB PO SCH ×2 (08:19→16:54)
[2021-04-23] MEDS: Rifampin 300 MG CAP PO SCH ×2 (10:38→20:11)
[2021-04-23] MEDS: Vancomycin HCl 750 MG in Sodium Chloride 0.9% 250 ML 250 ML IVPB SCH (16:54)
[2021-04-23] MEDS: Vancomycin HCl 500 MG in Sodium Chloride 0.9% 100 ML IVPB SCH (16:54)
[2021-04-23] MEDS: Escitalopram Oxalate 10 mg Tablet PO SCH (20:11)
[2021-04-23] MEDS: Melatonin 3 MG TAB PO SCH (20:11)
[2021-04-23] MEDS: Magnesium Oxide 400 MG TAB PO SCH (20:11)
[2021-04-23] MEDS: Lisinopril 20 MG TAB PO SCH (20:11)
[2021-04-24] MEDS: Acetaminophen 325 MG TAB PO PRN (01:27)
[2021-04-24] MEDS: Amlodipine 10 MG TAB PO SCH (05:45)
[2021-04-24] MEDS: Atenolol 25 MG TAB PO SCH (05:45)
[2021-04-24] MEDS: Levothyroxine Sodium 88 MCG TAB PO SCH (05:46)
[2021-04-24 06:46] LABS: ALT (SGPT) 13 U/L (8-55); AST (SGOT) 18 U/L (5-34); Albumin 3.2 g/dL (3.4-4.8); Alkaline Phosphatase 57 U/L (40-110); Anion Gap 10 mmol/L (10-20); BUN (Urea Nitrogen) 20 mg/dL (9.8-20.1); Bilirubin, Total 0.3 mg/dL (0.2-1.2); CRP (Inflammatory) Less than 0.50 mg/dL (= or < 0.5); Calc. Creatinine Clearance 47 mL/min (70-130); Calcium 8.9 mg/dL (7.8-10.44); Carbon Dioxide 28 mmol/L (23-31); Chloride 102 mmol/L (98-107); Globulin 2.5 g/dL (2.4-3.5); Glucose 81 mg/dL (83-110); Potassium 3.6 mmol/L (3.5-5.1); Protein, Total 5.7 g/dL (5.8-8.1); Sodium 136 mmol/L (136-145)
[2021-04-24 06:59] LABS: Eosinophils 1 % (0-10); Hemoglobin 9.2 g/dL (12.0-16.0); Lymphocytes 34 % (21-51); MDiff Complete? YES; Mean Corpuscular HGB CONC 31.5 g/dL (32.0-36.0); Mean Corpuscular Hemoglobin 29.6 pg (27.0-31.0); Mean Corpuscular Volume 94.3 fL (78.0-98.0); Mean Platelet Volume 6.7 fL (7.4-10.4); Monocytes 19 % (0-10); Neutrophil 46 % (42-75); Platelet Count 190 thou/uL (130-400); Platelet Morphology Comment Appears Adequate; RBC Distribution Width 13.3 % (11.5-14.5); Red Blood Cell (RBC) Count 3.09 mill/uL (4.20-5.40); White Blood Cell (WBC) Count 2.4 thou/uL (4.8-10.8)
[2021-04-24] MEDS: Hydrochlorothiazide 25 MG TAB PO SCH (08:04)
[2021-04-24] MEDS: Apixaban 5 MG TAB PO SCH ×2 (08:04→20:10)
[2021-04-24] MEDS: Fish Oil 1,000 MG CAP PO SCH (08:04)
[2021-04-24] MEDS: Folic Acid 1 MG TAB PO SCH (08:06)
[2021-04-24] MEDS: Multivitamin W/ Minerals 1 TAB PO SCH (08:07)
[2021-04-24] MEDS: Potassium Chloride 20 MEQ TAB PO SCH ×2 (08:07→16:47)
[2021-04-24] MEDS: pyridOXINE 50 MG (B6) TAB PO SCH (08:08)
[2021-04-24] MEDS: Liothyronine Sodium 5 MCG TAB PO SCH (08:09)
[2021-04-24] MEDS: Cholecalciferol 1,000 UNITS (25 MCG) TAB PO SCH (08:10)
[2021-04-24] MEDS: Cyanocobalamin (Vitamin B-12) 1,000 MCG TAB PO SCH (08:10)
[2021-04-24] MEDS: Aspirin 81 mg Enteric Coated Tablet PO SCH (08:10)
[2021-04-24] MEDS: Fluticasone Propionate Nasal Spray 16 gm Bottle NASAL SCH (08:11)
[2021-04-24] MEDS: Nystatin Cream 15 GM TUBE TOP SCH ×2 (08:12→20:09)
[2021-04-24] MEDS: [UNRECOGNIZED DRUG - OTHER] PO SCH (08:14)
[2021-04-24] MEDS: [UNRECOGNIZED DRUG - OTHER] PO SCH (08:15)
[2021-04-24] MEDS: UBIDECARENONE 30 MG PO SCH (08:17)
[2021-04-24] MEDS: [UNRECOGNIZED DRUG - OTHER] PO SCH (08:17)
[2021-04-24] MEDS: CHLORELLA PO SCH (08:18)
[2021-04-24] MEDS: Rifampin 300 MG CAP PO SCH ×2 (09:59→20:12)
[2021-04-24] MEDS: Vancomycin HCl 750 MG in Sodium Chloride 0.9% 250 ML 250 ML IVPB SCH (16:47)
[2021-04-24] MEDS: Vancomycin HCl 500 MG in Sodium Chloride 0.9% 100 ML IVPB SCH (17:45)
[2021-04-24] MEDS: Magnesium Oxide 400 MG TAB PO SCH (20:09)
[2021-04-24] MEDS: Melatonin 3 MG TAB PO SCH (20:10)
[2021-04-24] MEDS: Lisinopril 20 MG TAB PO SCH (20:10)
[2021-04-24] MEDS: Escitalopram Oxalate 10 mg Tablet PO SCH (20:10)
[2021-04-25] MEDS: Amlodipine 10 MG TAB PO SCH (05:31)
[2021-04-25] MEDS: Atenolol 25 MG TAB PO SCH (05:32)
[2021-04-25] MEDS: Levothyroxine Sodium 88 MCG TAB PO SCH (05:32)
[2021-04-25] MEDS: Potassium Chloride 20 MEQ TAB PO SCH ×2 (08:13→17:33)
[2021-04-25] MEDS: Fluticasone Propionate Nasal Spray 16 gm Bottle NASAL SCH (08:14)
[2021-04-25] MEDS: Liothyronine Sodium 5 MCG TAB PO SCH (08:14)
[2021-04-25] MEDS: Multivitamin W/ Minerals 1 TAB PO SCH (08:15)
[2021-04-25] MEDS: pyridOXINE 50 MG (B6) TAB PO SCH (08:15)
[2021-04-25] MEDS: Cholecalciferol 1,000 UNITS (25 MCG) TAB PO SCH (08:15)
[2021-04-25] MEDS: Fish Oil 1,000 MG CAP PO SCH (08:15)
[2021-04-25] MEDS: Apixaban 5 MG TAB PO SCH ×2 (08:16→20:07)
[2021-04-25] MEDS: Cyanocobalamin (Vitamin B-12) 1,000 MCG TAB PO SCH (08:16)
[2021-04-25] MEDS: Aspirin 81 mg Enteric Coated Tablet PO SCH (08:17)
[2021-04-25] MEDS: Folic Acid 1 MG TAB PO SCH (08:17)
[2021-04-25] MEDS: Hydrochlorothiazide 25 MG TAB PO SCH (08:18)
[2021-04-25] MEDS: [UNRECOGNIZED DRUG - OTHER] PO SCH (08:20)
[2021-04-25] MEDS: [UNRECOGNIZED DRUG - OTHER] PO SCH (08:20)
[2021-04-25] MEDS: Nystatin Cream 15 GM TUBE TOP SCH ×2 (08:21→20:06)
[2021-04-25] MEDS: Rifampin 300 MG CAP PO SCH ×2 (10:42→20:07)
[2021-04-25] MEDS: CHLORELLA PO SCH (10:45)
[2021-04-25] MEDS: [UNRECOGNIZED DRUG - OTHER] PO SCH (10:45)
[2021-04-25] MEDS: UBIDECARENONE 30 MG PO SCH (10:48)
[2021-04-25] MEDS: Vancomycin HCl 750 MG in Sodium Chloride 0.9% 250 ML 250 ML IVPB SCH (16:54)
[2021-04-25] MEDS: Vancomycin HCl 500 MG in Sodium Chloride 0.9% 100 ML IVPB SCH (17:33)
[2021-04-25] MEDS: Escitalopram Oxalate 10 mg Tablet PO SCH (20:07)
[2021-04-25] MEDS: Magnesium Oxide 400 MG TAB PO SCH (20:07)
[2021-04-25] MEDS: Lisinopril 20 MG TAB PO SCH (20:07)
[2021-04-25] MEDS: Melatonin 3 MG TAB PO SCH (20:07)
[2021-04-25] MEDS: Acetaminophen 325 MG TAB PO PRN (22:16)
[2021-04-25] MEDS ORDERED: risperiDONE 0.5 MG TAB PO SCH (23:00)
[2021-04-26] MEDS: Atenolol 25 MG TAB PO SCH (05:57)
[2021-04-26] MEDS: Amlodipine 10 MG TAB PO SCH (05:59)
[2021-04-26] MEDS: Levothyroxine Sodium 88 MCG TAB PO SCH (05:59)
[2021-04-26 07:10] LABS: Hemoglobin 9.7 g/dL (12.0-16.0)
[2021-04-26] MEDS: Potassium Chloride 20 MEQ TAB PO SCH ×2 (07:46→17:14)
[2021-04-26] MEDS: Multivitamin W/ Minerals 1 TAB PO SCH (08:16)
[2021-04-26] MEDS: Aspirin 81 mg Enteric Coated Tablet PO SCH (08:16)
[2021-04-26] MEDS: pyridOXINE 50 MG (B6) TAB PO SCH (08:16)
[2021-04-26] MEDS: Liothyronine Sodium 5 MCG TAB PO SCH (08:17)
[2021-04-26] MEDS: Fish Oil 1,000 MG CAP PO SCH (08:17)
[2021-04-26] MEDS: Cyanocobalamin (Vitamin B-12) 1,000 MCG TAB PO SCH (08:17)
[2021-04-26] MEDS: Folic Acid 1 MG TAB PO SCH (08:17)
[2021-04-26] MEDS: Cholecalciferol 1,000 UNITS (25 MCG) TAB PO SCH (08:17)
[2021-04-26] MEDS: Hydrochlorothiazide 25 MG TAB PO SCH (08:18)
[2021-04-26] MEDS: Fluticasone Propionate Nasal Spray 16 gm Bottle NASAL SCH (08:18)
[2021-04-26] MEDS: Apixaban 5 MG TAB PO SCH ×2 (08:18→20:38)
[2021-04-26] MEDS: [UNRECOGNIZED DRUG - OTHER] PO SCH (08:19)
[2021-04-26] MEDS: UBIDECARENONE 30 MG PO SCH (08:19)
[2021-04-26] MEDS: [UNRECOGNIZED DRUG - OTHER] PO SCH (08:19)
[2021-04-26] MEDS: CHLORELLA PO SCH (08:20)
[2021-04-26] MEDS: [UNRECOGNIZED DRUG - OTHER] PO SCH (08:20)
[2021-04-26] MEDS: Nystatin Cream 15 GM TUBE TOP SCH ×3 (08:35→20:39)
[2021-04-26] MEDS: Rifampin 300 MG CAP PO SCH ×2 (10:01→20:41)
[2021-04-26] MEDS: Ondansetron ODT 4 MG TAB SL PRN (13:37)
[2021-04-26] MEDS: Vancomycin HCl 750 MG in Sodium Chloride 0.9% 250 ML 250 ML IVPB SCH (16:33)
[2021-04-26] MEDS: Vancomycin HCl 500 MG in Sodium Chloride 0.9% 100 ML IVPB SCH (17:38)
[2021-04-26] MEDS: Magnesium Oxide 400 MG TAB PO SCH (20:37)
[2021-04-26] MEDS: Escitalopram Oxalate 10 mg Tablet PO SCH (20:37)
[2021-04-26] MEDS: risperiDONE 0.5 MG TAB PO SCH (20:37)
[2021-04-26] MEDS: Melatonin 3 MG TAB PO SCH (20:38)
[2021-04-26] MEDS: Lisinopril 20 MG TAB PO SCH (20:38)
[2021-04-27] MEDS: Levothyroxine Sodium 88 MCG TAB PO SCH (06:15)
[2021-04-27] MEDS: Atenolol 25 MG TAB PO SCH (06:16)
[2021-04-27] MEDS: Amlodipine 10 MG TAB PO SCH (06:16)
[2021-04-27] MEDS: Folic Acid 1 MG TAB PO SCH (07:48)
[2021-04-27] MEDS: Ondansetron ODT 4 MG TAB SL PRN (07:52)
[2021-04-27] MEDS: Potassium Chloride 20 MEQ TAB PO SCH ×2 (07:55→17:06)
[2021-04-27] MEDS: Fish Oil 1,000 MG CAP PO SCH (07:59)
[2021-04-27] MEDS: Cyanocobalamin (Vitamin B-12) 1,000 MCG TAB PO SCH (07:59)
[2021-04-27] MEDS: Apixaban 5 MG TAB PO SCH ×2 (08:00→20:01)
[2021-04-27] MEDS: Cholecalciferol 1,000 UNITS (25 MCG) TAB PO SCH (08:00)
[2021-04-27] MEDS: Liothyronine Sodium 5 MCG TAB PO SCH (08:00)
[2021-04-27] MEDS: Multivitamin W/ Minerals 1 TAB PO SCH (08:00)
[2021-04-27] MEDS: Hydrochlorothiazide 25 MG TAB PO SCH (08:01)
[2021-04-27] MEDS: Aspirin 81 mg Enteric Coated Tablet PO SCH (08:01)
[2021-04-27] MEDS: pyridOXINE 50 MG (B6) TAB PO SCH (08:02)
[2021-04-27] MEDS: Fluticasone Propionate Nasal Spray 16 gm Bottle NASAL SCH (08:03)
[2021-04-27] MEDS: [UNRECOGNIZED DRUG - OTHER] PO SCH (08:05)
[2021-04-27] MEDS: [UNRECOGNIZED DRUG - OTHER] PO SCH (08:06)
[2021-04-27] MEDS: CHLORELLA PO SCH (08:07)
[2021-04-27] MEDS: [UNRECOGNIZED DRUG - OTHER] PO SCH (08:12)
[2021-04-27] MEDS: Nystatin Cream 15 GM TUBE TOP SCH ×2 (08:12→20:01)
[2021-04-27] MEDS: UBIDECARENONE 30 MG PO SCH (08:12)
[2021-04-27] MEDS: Rifampin 300 MG CAP PO SCH ×2 (11:05→20:07)
[2021-04-27 14:24] LABS: SARS-CoV-2 PCR by NAA Not Detected (NotDetected)
[2021-04-27] MEDS: Vancomycin HCl 750 MG in Sodium Chloride 0.9% 250 ML 250 ML IVPB SCH (17:05)
[2021-04-27] MEDS: Vancomycin HCl 500 MG in Sodium Chloride 0.9% 100 ML IVPB SCH (17:06)
[2021-04-27] MEDS: Melatonin 3 MG TAB PO SCH (20:01)
[2021-04-27] MEDS: Famotidine 20 MG TAB PO SCH (20:01)
[2021-04-27] MEDS: risperiDONE 0.5 MG TAB PO SCH (20:01)
[2021-04-27] MEDS: Saccharomyces boulardii 250 MG CAP PO SCH (20:01)
[2021-04-27] MEDS: Lisinopril 20 MG TAB PO SCH (20:02)
[2021-04-27] MEDS: Magnesium Oxide 400 MG TAB PO SCH (20:02)
[2021-04-27] MEDS: Escitalopram Oxalate 10 mg Tablet PO SCH (20:02)
[2021-04-28] MEDS: Atenolol 25 MG TAB PO SCH (05:42)
[2021-04-28] MEDS: Levothyroxine Sodium 88 MCG TAB PO SCH (05:43)
[2021-04-28] MEDS: Amlodipine 10 MG TAB PO SCH (05:43)
[2021-04-28] MEDS: Ondansetron ODT 4 MG TAB SL PRN ×2 (07:01→14:20)
[2021-04-28] MEDS: Potassium Chloride 20 MEQ TAB PO SCH ×2 (07:01→16:15)
[2021-04-28] MEDS ORDERED: Saccharomyces boulardii 250 MG CAP PO SCH (09:00)
[2021-04-28] MEDS ORDERED: Ondansetron PF 4 MG/2 ML Vial IVP SCH (09:15)
[2021-04-28] MEDS: Saccharomyces boulardii 250 MG CAP PO SCH ×2 (13:17→20:29)
[2021-04-28] MEDS: Apixaban 5 MG TAB PO SCH ×2 (13:17→20:29)
[2021-04-28] MEDS: Fish Oil 1,000 MG CAP PO SCH (15:57)
[2021-04-28] MEDS: Aspirin 81 mg Enteric Coated Tablet PO SCH (15:57)
[2021-04-28] MEDS: Cholecalciferol 1,000 UNITS (25 MCG) TAB PO SCH (15:57)
[2021-04-28] MEDS: Cyanocobalamin (Vitamin B-12) 1,000 MCG TAB PO SCH (15:57)
[2021-04-28] MEDS: Multivitamin W/ Minerals 1 TAB PO SCH (15:58)
[2021-04-28] MEDS: [UNRECOGNIZED DRUG - OTHER] PO SCH (15:58)
[2021-04-28] MEDS: Hydrochlorothiazide 25 MG TAB PO SCH (15:58)
[2021-04-28] MEDS: Liothyronine Sodium 5 MCG TAB PO SCH (15:58)
[2021-04-28] MEDS: Folic Acid 1 MG TAB PO SCH (15:58)
[2021-04-28] MEDS: Nystatin Cream 15 GM TUBE TOP SCH ×2 (15:59→20:30)
[2021-04-28] MEDS: [UNRECOGNIZED DRUG - OTHER] PO SCH (15:59)
[2021-04-28] MEDS: UBIDECARENONE 30 MG PO SCH (15:59)
[2021-04-28] MEDS: [UNRECOGNIZED DRUG - OTHER] PO SCH (16:00)
[2021-04-28] MEDS: pyridOXINE 50 MG (B6) TAB PO SCH (16:00)
[2021-04-28] MEDS: CHLORELLA PO SCH (16:00)
[2021-04-28] MEDS: Rifampin 300 MG CAP PO SCH ×2 (16:00→20:29)
[2021-04-28] MEDS: Fluticasone Propionate Nasal Spray 16 gm Bottle NASAL SCH (16:08)
[2021-04-28] MEDS: Vancomycin HCl 750 MG in Sodium Chloride 0.9% 250 ML 250 ML IVPB SCH (16:09)
[2021-04-28] MEDS: Vancomycin HCl 500 MG in Sodium Chloride 0.9% 100 ML IVPB SCH (16:09)
[2021-04-28] MEDS: Lisinopril 20 MG TAB PO SCH (20:28)
[2021-04-28] MEDS: risperiDONE 0.5 MG TAB PO SCH (20:29)
[2021-04-28] MEDS: Loratadine 10 MG TAB PO SCH (20:29)
[2021-04-28] MEDS: Melatonin 3 MG TAB PO SCH (20:29)
[2021-04-28] MEDS: Famotidine 20 MG TAB PO SCH (20:29)
[2021-04-28] MEDS: Escitalopram Oxalate 10 mg Tablet PO SCH (20:29)
[2021-04-28] MEDS: Magnesium Oxide 400 MG TAB PO SCH (20:30)
[2021-04-28] MEDS: Promethazine 25 MG TAB PO PRN (20:34)
[2021-04-29] MEDS ORDERED: Ziprasidone 20 MG VIAL IM SCH (01:15)
[2021-04-29] MEDS: Amlodipine 5 MG TAB PO SCH (05:41)
[2021-04-29] MEDS: Atenolol 25 MG TAB PO SCH (05:41)
[2021-04-29] MEDS: Levothyroxine Sodium 88 MCG TAB PO SCH (05:41)
[2021-04-29 06:32] LABS: Hemoglobin 10.2 g/dL (12.0-16.0)
[2021-04-29] MEDS: Fluticasone Propionate Nasal Spray 16 gm Bottle NASAL SCH (08:49)
[2021-04-29] MEDS: [UNRECOGNIZED DRUG - OTHER] PO SCH (08:50)
[2021-04-29] MEDS: CHLORELLA PO SCH (08:51)
[2021-04-29] MEDS: Aspirin 81 mg Enteric Coated Tablet PO SCH (08:52)
[2021-04-29] MEDS: Potassium Chloride 20 MEQ TAB PO SCH ×2 (08:52→17:09)
[2021-04-29] MEDS: Cholecalciferol 1,000 UNITS (25 MCG) TAB PO SCH (08:52)
[2021-04-29] MEDS: Apixaban 5 MG TAB PO SCH ×2 (08:52→20:08)
[2021-04-29] MEDS: Nystatin Cream 15 GM TUBE TOP SCH ×2 (08:52→20:09)
[2021-04-29] MEDS: Hydrochlorothiazide 25 MG TAB PO SCH (08:53)
[2021-04-29] MEDS: Folic Acid 1 MG TAB PO SCH (08:53)
[2021-04-29] MEDS: Fish Oil 1,000 MG CAP PO SCH (08:53)
[2021-04-29] MEDS: Cyanocobalamin (Vitamin B-12) 1,000 MCG TAB PO SCH (08:53)
[2021-04-29] MEDS: Multivitamin W/ Minerals 1 TAB PO SCH (08:54)
[2021-04-29] MEDS: [UNRECOGNIZED DRUG - OTHER] PO SCH (08:54)
[2021-04-29] MEDS: Liothyronine Sodium 5 MCG TAB PO SCH (08:54)
[2021-04-29] MEDS: UBIDECARENONE 30 MG PO SCH (08:54)
[2021-04-29] MEDS: [UNRECOGNIZED DRUG - OTHER] PO SCH (08:54)
[2021-04-29] MEDS: Saccharomyces boulardii 250 MG CAP PO SCH ×2 (08:55→20:07)
[2021-04-29] MEDS: pyridOXINE 50 MG (B6) TAB PO SCH (08:55)
[2021-04-29] MEDS: Rifampin 300 MG CAP PO SCH ×2 (10:38→20:08)
[2021-04-29] MEDS: clonazePAM 0.5 MG TAB PO PRN (17:09)
[2021-04-29] MEDS: Vancomycin HCl 750 MG in Sodium Chloride 0.9% 250 ML 250 ML IVPB SCH (17:10)
[2021-04-29] MEDS: Vancomycin HCl 500 MG in Sodium Chloride 0.9% 100 ML IVPB SCH (17:10)
[2021-04-29] MEDS: Famotidine 20 MG TAB PO SCH (20:07)
[2021-04-29] MEDS: risperiDONE 0.5 MG TAB PO SCH (20:08)
[2021-04-29] MEDS: Lisinopril 20 MG TAB PO SCH (20:08)
[2021-04-29] MEDS: Loratadine 10 MG TAB PO SCH (20:08)
[2021-04-29] MEDS: Melatonin 3 MG TAB PO SCH (20:08)
[2021-04-29] MEDS: Magnesium Oxide 400 MG TAB PO SCH (20:08)
[2021-04-29] MEDS: Escitalopram Oxalate 10 mg Tablet PO SCH (20:08)
[2021-04-30] MEDS: Atenolol 25 MG TAB PO SCH (05:39)
[2021-04-30] MEDS: Amlodipine 5 MG TAB PO SCH (05:39)
[2021-04-30] MEDS: Levothyroxine Sodium 88 MCG TAB PO SCH (05:39)
[2021-04-30] MEDS: Potassium Chloride 20 MEQ TAB PO SCH ×2 (08:01→17:30)
[2021-04-30] MEDS: Cholecalciferol 1,000 UNITS (25 MCG) TAB PO SCH (08:01)
[2021-04-30] MEDS: Aspirin 81 mg Enteric Coated Tablet PO SCH (08:01)
[2021-04-30] MEDS: Apixaban 5 MG TAB PO SCH ×2 (08:01→20:20)
[2021-04-30] MEDS: Fluticasone Propionate Nasal Spray 16 gm Bottle NASAL SCH (08:02)
[2021-04-30] MEDS: Fish Oil 1,000 MG CAP PO SCH (08:02)
[2021-04-30] MEDS: Cyanocobalamin (Vitamin B-12) 1,000 MCG TAB PO SCH (08:02)
[2021-04-30] MEDS: Folic Acid 1 MG TAB PO SCH (08:02)
[2021-04-30] MEDS: Hydrochlorothiazide 25 MG TAB PO SCH (08:03)
[2021-04-30] MEDS: Multivitamin W/ Minerals 1 TAB PO SCH (08:03)
[2021-04-30] MEDS: Liothyronine Sodium 5 MCG TAB PO SCH (08:03)
[2021-04-30] MEDS: [UNRECOGNIZED DRUG - OTHER] PO SCH (08:04)
[2021-04-30] MEDS: [UNRECOGNIZED DRUG - OTHER] PO SCH (08:04)
[2021-04-30] MEDS: UBIDECARENONE 30 MG PO SCH (08:04)
[2021-04-30] MEDS: Nystatin Cream 15 GM TUBE TOP SCH ×2 (08:04→20:26)
[2021-04-30] MEDS: CHLORELLA PO SCH (08:05)
[2021-04-30] MEDS: [UNRECOGNIZED DRUG - OTHER] PO SCH (08:06)
[2021-04-30] MEDS: pyridOXINE 50 MG (B6) TAB PO SCH (08:06)
[2021-04-30] MEDS: Saccharomyces boulardii 250 MG CAP PO SCH ×2 (08:07→20:22)
[2021-04-30] MEDS: clonazePAM 0.5 MG TAB PO PRN ×2 (08:33→20:29)
[2021-04-30] MEDS: Rifampin 300 MG CAP PO SCH ×2 (10:45→23:16)
[2021-04-30] MEDS: Vancomycin HCl 500 MG in Sodium Chloride 0.9% 100 ML IVPB SCH (17:31)
[2021-04-30] MEDS: Vancomycin HCl 750 MG in Sodium Chloride 0.9% 250 ML 250 ML IVPB SCH (17:31)
[2021-04-30] MEDS: Lisinopril 20 MG TAB PO SCH (20:20)
[2021-04-30] MEDS: Melatonin 3 MG TAB PO SCH ×3 (20:20→20:24)
[2021-04-30] MEDS: Famotidine 20 MG TAB PO SCH (20:21)
[2021-04-30] MEDS: Magnesium Oxide 400 MG TAB PO SCH (20:21)
[2021-04-30] MEDS: Escitalopram Oxalate 10 mg Tablet PO SCH (20:22)
[2021-04-30] MEDS: Loratadine 10 MG TAB PO SCH (20:23)
[2021-04-30] MEDS: risperiDONE 0.5 MG TAB PO SCH (20:23)
[2021-05-01] MEDS: Levothyroxine Sodium 88 MCG TAB PO SCH (06:17)
[2021-05-01] MEDS: Atenolol 25 MG TAB PO SCH (06:17)
[2021-05-01] MEDS: Amlodipine 5 MG TAB PO SCH (06:17)
[2021-05-01] MEDS: Potassium Chloride 20 MEQ TAB PO SCH ×2 (08:27→16:58)
[2021-05-01] MEDS: Liothyronine Sodium 5 MCG TAB PO SCH (08:28)
[2021-05-01] MEDS: Cholecalciferol 1,000 UNITS (25 MCG) TAB PO SCH (08:29)
[2021-05-01] MEDS: Apixaban 5 MG TAB PO SCH ×2 (08:29→20:58)
[2021-05-01] MEDS: Cyanocobalamin (Vitamin B-12) 1,000 MCG TAB PO SCH (08:29)
[2021-05-01] MEDS: Folic Acid 1 MG TAB PO SCH (08:29)
[2021-05-01] MEDS: Saccharomyces boulardii 250 MG CAP PO SCH ×2 (08:29→20:59)
[2021-05-01] MEDS: Hydrochlorothiazide 25 MG TAB PO SCH (08:30)
[2021-05-01] MEDS: Aspirin 81 mg Enteric Coated Tablet PO SCH (08:30)
[2021-05-01] MEDS: pyridOXINE 50 MG (B6) TAB PO SCH (08:31)
[2021-05-01] MEDS: Fish Oil 1,000 MG CAP PO SCH (08:33)
[2021-05-01] MEDS: Multivitamin W/ Minerals 1 TAB PO SCH (08:33)
[2021-05-01] MEDS: [UNRECOGNIZED DRUG - OTHER] PO SCH (08:33)
[2021-05-01] MEDS: Nystatin Cream 15 GM TUBE TOP SCH ×2 (08:33→21:02)
[2021-05-01] MEDS: Fluticasone Propionate Nasal Spray 16 gm Bottle NASAL SCH (08:33)
[2021-05-01] MEDS: [UNRECOGNIZED DRUG - OTHER] PO SCH (08:34)
[2021-05-01] MEDS: CHLORELLA PO SCH (08:35)
[2021-05-01] MEDS: [UNRECOGNIZED DRUG - OTHER] PO SCH (08:36)
[2021-05-01] MEDS: UBIDECARENONE 30 MG PO SCH (08:38)
[2021-05-01] MEDS: Rifampin 300 MG CAP PO SCH ×2 (10:41→20:59)
[2021-05-01] MEDS: Vancomycin HCl 750 MG in Sodium Chloride 0.9% 250 ML 250 ML IVPB SCH (16:54)
[2021-05-01] MEDS: Vancomycin HCl 500 MG in Sodium Chloride 0.9% 100 ML IVPB SCH (16:59)
[2021-05-01] MEDS: Escitalopram Oxalate 10 mg Tablet PO SCH (20:56)
[2021-05-01] MEDS: Magnesium Oxide 400 MG TAB PO SCH (20:56)
[2021-05-01] MEDS: risperiDONE 0.5 MG TAB PO SCH (20:58)
[2021-05-01] MEDS: clonazePAM 0.5 MG TAB PO PRN (20:59)
[2021-05-01] MEDS: Lisinopril 20 MG TAB PO SCH (20:59)
[2021-05-01] MEDS: Famotidine 20 MG TAB PO SCH (20:59)
[2021-05-01] MEDS: Loratadine 10 MG TAB PO SCH (21:00)
[2021-05-01] MEDS: Melatonin 3 MG TAB PO SCH (21:02)
[2021-05-02] MEDS ORDERED: Amlodipine 5 MG TAB ONE (05:54)
[2021-05-02 06:23] LABS: Hemoglobin 10.1 g/dL (12.0-16.0)
[2021-05-02] MEDS: Levothyroxine Sodium 88 MCG TAB PO SCH (06:29)
[2021-05-02] MEDS: Atenolol 25 MG TAB PO SCH (06:29)
[2021-05-02] MEDS: Amlodipine 5 MG TAB PO SCH (06:29)
[2021-05-02] MEDS: Fish Oil 1,000 MG CAP PO SCH (07:45)
[2021-05-02] MEDS: Potassium Chloride 20 MEQ TAB PO SCH ×2 (07:45→17:56)
[2021-05-02] MEDS: Cyanocobalamin (Vitamin B-12) 1,000 MCG TAB PO SCH (07:45)
[2021-05-02] MEDS: Multivitamin W/ Minerals 1 TAB PO SCH (07:45)
[2021-05-02] MEDS: Saccharomyces boulardii 250 MG CAP PO SCH ×2 (07:45→21:22)
[2021-05-02] MEDS: Nystatin Cream 15 GM TUBE TOP SCH ×2 (07:46→21:24)
[2021-05-02] MEDS: Fluticasone Propionate Nasal Spray 16 gm Bottle NASAL SCH (07:46)
[2021-05-02] MEDS: Liothyronine Sodium 5 MCG TAB PO SCH (07:47)
[2021-05-02] MEDS: Folic Acid 1 MG TAB PO SCH (07:47)
[2021-05-02] MEDS: pyridOXINE 50 MG (B6) TAB PO SCH (07:48)
[2021-05-02] MEDS: Cholecalciferol 1,000 UNITS (25 MCG) TAB PO SCH (07:49)
[2021-05-02] MEDS: [UNRECOGNIZED DRUG - OTHER] PO SCH (07:50)
[2021-05-02] MEDS: Aspirin 81 mg Enteric Coated Tablet PO SCH (07:50)
[2021-05-02] MEDS: [UNRECOGNIZED DRUG - OTHER] PO SCH (07:51)
[2021-05-02] MEDS: CHLORELLA PO SCH (07:52)
[2021-05-02] MEDS: UBIDECARENONE 30 MG PO SCH (07:52)
[2021-05-02] MEDS: Apixaban 5 MG TAB PO SCH ×2 (07:53→21:23)
[2021-05-02] MEDS: Hydrochlorothiazide 25 MG TAB PO SCH (07:53)
[2021-05-02] MEDS: [UNRECOGNIZED DRUG - OTHER] PO SCH (07:54)
[2021-05-02] MEDS: Rifampin 300 MG CAP PO SCH ×2 (09:42→21:22)
[2021-05-02] MEDS: clonazePAM 0.5 MG TAB PO PRN ×2 (10:08→21:18)
[2021-05-02] MEDS: Vancomycin HCl 750 MG in Sodium Chloride 0.9% 250 ML 250 ML IVPB SCH (16:45)
[2021-05-02] MEDS: Vancomycin HCl 500 MG in Sodium Chloride 0.9% 100 ML IVPB SCH (17:56)
[2021-05-02 19:23] VITALS: BMI 19.4
[2021-05-02] MEDS: Famotidine 20 MG TAB PO SCH (21:18)
[2021-05-02] MEDS: Acetaminophen 325 MG TAB PO PRN (21:18)
[2021-05-02] MEDS: Magnesium Oxide 400 MG TAB PO SCH (21:21)
[2021-05-02] MEDS: Escitalopram Oxalate 10 mg Tablet PO SCH (21:22)
[2021-05-02] MEDS: Melatonin 3 MG TAB PO SCH (21:23)
[2021-05-02] MEDS: Lisinopril 20 MG TAB PO SCH (21:23)
[2021-05-02] MEDS: Loratadine 10 MG TAB PO SCH (21:23)
[2021-05-02] MEDS: risperiDONE 0.5 MG TAB PO SCH (21:23)
[2021-05-03] MEDS ORDERED: Amlodipine 5 MG TAB ONE ×3 (05:24→20:42)
[2021-05-03] MEDS: Amlodipine 5 MG TAB PO SCH (06:05)
[2021-05-03] MEDS: Levothyroxine Sodium 88 MCG TAB PO SCH (06:05)
[2021-05-03] MEDS: Atenolol 25 MG TAB PO SCH (06:05)
[2021-05-03] MEDS: Potassium Chloride 20 MEQ TAB PO SCH ×2 (08:00→17:42)
[2021-05-03] MEDS: Saccharomyces boulardii 250 MG CAP PO SCH ×2 (08:01→22:05)
[2021-05-03] MEDS: Liothyronine Sodium 5 MCG TAB PO SCH (08:01)
[2021-05-03] MEDS: Cyanocobalamin (Vitamin B-12) 1,000 MCG TAB PO SCH (08:01)
[2021-05-03] MEDS: Fish Oil 1,000 MG CAP PO SCH (08:02)
[2021-05-03] MEDS: Cholecalciferol 1,000 UNITS (25 MCG) TAB PO SCH (08:03)
[2021-05-03] MEDS: Apixaban 5 MG TAB PO SCH ×2 (08:03→22:05)
[2021-05-03] MEDS: Folic Acid 1 MG TAB PO SCH (08:03)
[2021-05-03] MEDS: Multivitamin W/ Minerals 1 TAB PO SCH (08:04)
[2021-05-03] MEDS: pyridOXINE 50 MG (B6) TAB PO SCH (08:05)
[2021-05-03] MEDS: Aspirin 81 mg Enteric Coated Tablet PO SCH (08:05)
[2021-05-03] MEDS: Hydrochlorothiazide 25 MG TAB PO SCH (08:05)
[2021-05-03] MEDS: Nystatin Cream 15 GM TUBE TOP SCH ×2 (08:06→22:07)
[2021-05-03] MEDS: Fluticasone Propionate Nasal Spray 16 gm Bottle NASAL SCH (08:06)
[2021-05-03] MEDS: UBIDECARENONE 30 MG PO SCH (08:07)
[2021-05-03] MEDS: Promethazine 25 MG TAB PO PRN (09:40)
[2021-05-03] MEDS: [UNRECOGNIZED DRUG - OTHER] PO SCH (10:05)
[2021-05-03] MEDS: [UNRECOGNIZED DRUG - OTHER] PO SCH (10:06)
[2021-05-03] MEDS: [UNRECOGNIZED DRUG - OTHER] PO SCH (10:06)
[2021-05-03] MEDS: CHLORELLA PO SCH (10:06)
[2021-05-03] MEDS: Rifampin 300 MG CAP PO SCH ×2 (11:47→22:46)
[2021-05-03] MEDS: clonazePAM 0.5 MG TAB PO PRN (15:56)
[2021-05-03] MEDS: Vancomycin HCl 500 MG in Sodium Chloride 0.9% 100 ML IVPB SCH (17:42)
[2021-05-03] MEDS: Vancomycin HCl 750 MG in Sodium Chloride 0.9% 250 ML 250 ML IVPB SCH (17:42)
[2021-05-03] MEDS: Escitalopram Oxalate 10 mg Tablet PO SCH (22:03)
[2021-05-03] MEDS: Famotidine 20 MG TAB PO SCH (22:03)
[2021-05-03] MEDS: Magnesium Oxide 400 MG TAB PO SCH (22:04)
[2021-05-03] MEDS: Loratadine 10 MG TAB PO SCH (22:05)
[2021-05-03] MEDS: Melatonin 3 MG TAB PO SCH (22:05)
[2021-05-03] MEDS: risperiDONE 0.5 MG TAB PO SCH (22:05)
[2021-05-03] MEDS: Lisinopril 20 MG TAB PO SCH (22:05)
[2021-05-03] MEDS: Acetaminophen 325 MG TAB PO PRN (22:07)
[2021-05-04] MEDS: clonazePAM 0.5 MG TAB PO PRN (02:42)
[2021-05-04] MEDS: Atenolol 25 MG TAB PO SCH (05:57)
[2021-05-04] MEDS: Levothyroxine Sodium 88 MCG TAB PO SCH (05:57)
[2021-05-04] MEDS: Amlodipine 5 MG TAB PO SCH (05:57)
[2021-05-04] MEDS: Potassium Chloride 20 MEQ TAB PO SCH (07:38)
[2021-05-04 08:32] VITALS: TEMP 97.8
[2021-05-04] MEDS: Apixaban 5 MG TAB PO SCH (10:08)
[2021-05-04] MEDS: Aspirin 81 mg Enteric Coated Tablet PO SCH (10:08)
[2021-05-04] MEDS: Cholecalciferol 1,000 UNITS (25 MCG) TAB PO SCH (10:08)
[2021-05-04] MEDS: Folic Acid 1 MG TAB PO SCH (10:09)
[2021-05-04] MEDS: Cyanocobalamin (Vitamin B-12) 1,000 MCG TAB PO SCH (10:09)
[2021-05-04] MEDS: Fish Oil 1,000 MG CAP PO SCH (10:09)
[2021-05-04] MEDS: Hydrochlorothiazide 25 MG TAB PO SCH (10:10)
[2021-05-04] MEDS: Multivitamin W/ Minerals 1 TAB PO SCH (10:10)
[2021-05-04] MEDS: Liothyronine Sodium 5 MCG TAB PO SCH (10:10)
[2021-05-04] MEDS: UBIDECARENONE 30 MG PO SCH (10:12)
[2021-05-04] MEDS: [UNRECOGNIZED DRUG - OTHER] PO SCH (10:12)
[2021-05-04] MEDS: [UNRECOGNIZED DRUG - OTHER] PO SCH (10:12)
[2021-05-04] MEDS: pyridOXINE 50 MG (B6) TAB PO SCH (10:13)
[2021-05-04] MEDS: [UNRECOGNIZED DRUG - OTHER] PO SCH (10:13)
[2021-05-04] MEDS: CHLORELLA PO SCH (10:13)
[2021-05-04] MEDS: Saccharomyces boulardii 250 MG CAP PO SCH (10:14)
[2021-05-04] MEDS: Rifampin 300 MG CAP PO SCH (13:12)
[2021-05-04] MEDS: Fluticasone Propionate Nasal Spray 16 gm Bottle NASAL SCH (13:16)
[2021-05-04] MEDS: Nystatin Cream 15 GM TUBE TOP SCH (13:20)
[2021-05-04 15:27] VITALS: BP 157/78
[2021-05-04] MEDS ORDERED: Doxycycline 100 MG CAP PO SCH (21:00)
[2021-05-06] MEDS ORDERED: Doxycycline 100 MG CAP PO SCH (09:00)
== END 2021-05-04 15:30 | disposition home health service (06) | DRG 549 ==
LOC: NAV ACUTE 17:02
PROVIDERS: ADMIT Internal Medicine; ATTEND Internal Medicine
DX: M00.9 Pyogenic arthritis, unspecified (principal); D62 Acute posthemorrhagic anemia; F03.91 Unspecified dementia, unspecified severity, with behavioral disturbance; Z20.822 Contact with and (suspected) exposure to COVID-19; E11.9 Type 2 diabetes mellitus without complications; I10 Essential (primary) hypertension; I25.10 Atherosclerotic heart disease of native coronary artery without angina pectoris; M19.90 Unspecified osteoarthritis, unspecified site; E03.9 Hypothyroidism, unspecified; G47.30 Sleep apnea, unspecified; F41.9 Anxiety disorder, unspecified; E78.5 Hyperlipidemia, unspecified; I48.91 Unspecified atrial fibrillation; F32.A Depression, unspecified; R53.81 Other malaise; E87.6 Hypokalemia; I95.1 Orthostatic hypotension; Z90.89 Acquired absence of other organs; Z90.10 Acquired absence of unspecified breast and nipple; Z88.1 Allergy status to other antibiotic agents; Z88.8 Allergy status to other drugs, medicaments and biological substances; Z79.01 Long term (current) use of anticoagulants; Z79.899 Other long term (current) drug therapy
CPT/HCPCS: 36415; 36416; 80048; 80053; 80202; 82565; 83036; 83735; 84132; 85014; 85018; 85025; 85652; 86140; J1642; J2405; J3370; J3486; J3490; J7050; Q0162; Q0169; U0003; U0005